=== PATIENT | male | born 2000 | race Caucasian/White ===

== ENCOUNTER 2022-05-10 07:30 | Outpatient (RCR) | payer BC, MEDICAID, SELFPAY | END 2022-08-05 14:59 | disposition home or self-care (01) | PROVIDERS: PCP Pediatrics; Visit Provider Orthopaedic Surgery | DX: M25.511 Pain in right shoulder (principal); M75.41 Impingement syndrome of right shoulder; Z74.9 Problem related to care provider dependency, unspecified; Z51.89 Encounter for other specified aftercare | CPT/HCPCS: 97110; 97140; 97161 ==

== ENCOUNTER 2022-11-22 09:22 | Outpatient (CLI) | payer BC, MEDICAID, SELFPAY ==
--- NOTE | 2022-11-22 09:15 | CRLHL7_ITS ---
For Patients: As a result of the Century Cures Act, medical imaging exams and procedure reports are released immediately into your electronic medical record. You may view this report before your referring provider. If you have questions, please contact your health care provider. Indication: CHRONIC RIGHT SHOULDER PAIN Procedure : Informed consent was obtained. The site was marked. Time-out was performed. The skin of the right shoulder was cleansed with ChloraPrep. A sterile drape was placed. 8 cc of 1 percent lidocaine was administered for superficial anesthesia. Subsequently a 22 gauge spinal needle was introduced into the right shoulder joint under intermittent fluoroscopic guidance. Injection of 2 cc nonionic Omnipaque 240 contrast confirmed intra-articular location. Subsequently 11 cc of dilute gadolinium were injected. The needle was removed and hemostasis achieved with direct pressure. A dressing was placed. The patient tolerated the procedure well without immediate complication and was immediately sent to MRI for imaging. Total fluoroscopy time 19 seconds. Impression: Successful fluoroscopically guided right shoulder arthrogram for MRI. Dictated by Jackson Meyers MD @ 11/22/2022 10:52:18 AM (Electronically Signed)
--- NOTE | 2022-11-22 10:15 | MR_ITS ---
[address] [address] Phone:?[phone] Fax:?[phone] Referring Physician Information: Adria Guzman M.D. [address] [facility] [address] Phone:?[phone] Fax:?[phone] Patient:?Valentin Valerio D.O.B:?2000 Sex:?Male Phone:?[phone] [facility] MRN:?[id number] Exam Date:?11/22/2022 ? EXAM: MR ARTHROGRAM of the RIGHT SHOULDER CLINICAL: Male, 22 years old, with chronic right shoulder pain. INDICATION: Evaluate for shoulder derangement etiology. PRIOR SURGERY: None reported. PLAIN FILMS: None available. COMPARISON: No prior MRIs available. TECHNICAL: Exam performed after fluoroscopically-guided and gadolinium contrast arthrography of the right glenohumeral joint, reported separately. Using a 1.5T MR scanner and a localizing shoulder surface coil: 3.0 mm?coronal obliques: PD, PDFS, T1FS 3.0 mm?sagittal obliques: T2, PDFS 3.0 mm?axials: PD, PDFS SEDATION: None. CONTRAST: No intravenous contrast. IMPRESSION: 1. Mild tendinosis of the distal anterior supraspinatus tendon and distal superior subscapularis tendon without more marked tendinopathy or defined tear. 2. No biceps tendon pathology. 3. No labral tears. 4. No glenohumeral chondromalacia/osteoarthritis. FINDINGS: Glenohumeral joint: Contrast/cyst: Contrast distends joint capsule. No paralabral ganglion cyst. Articular cartilage: Humeral head: No osteochondral abnormalities. Glenoid: No osteochondral abnormalities. Loose bodies: No demonstrable loose bodies. Capsule: No convincing adhesive capsulitis or capsular injury. Labrum: No labral tears. Bones: Proximal humerus: No fracture or marrow edema/pathology. No humeral Hill-Sachs or reverse Hill-Sachs lesion/impaction or contusion. Glenoid: No fracture or marrow edema/pathology. No osseous Bankart lesion. Coracoacromial arch: Acromion morphology: Type I acromion without defined subacromial spur/enthesophyte. No mesoacromion or preacromion. Acromiohumeral space: Within normal limits. Coracohumeral space: Within normal limits. Acromioclavicular joint: Joint: No acute injury, arthropathy, or inferior hypertrophy. Ligaments: Coracoclavicular ligaments are intact. Bursae: Subacromial-subdeltoid: No contrast in the subacromial space. No convincing subacromial bursal thickening/bursitis. Subcoracoid: No convincing subcoracoid bursal thickening/bursitis. Rotator cuff and muscles/tendons: Supraspinatus: Very localized mild supraspinatus tendinosis of the distal anterior supraspinatus tendon without more marked tendinopathy or defined tear (coronal images 10-9; sagittal images 6-4). Infraspinatus: No tendinopathy, tear or atrophy. Teres minor: No tendinopathy, tear or atrophy. Subscapularis: Mild subscapularis tendinosis without more marked tendinopathy, tear or muscle atrophy Deltoid: No strain or atrophy. Biceps tendon, long head: Intraarticular and extraarticular segments are intact without rupture, tendinopathy or displacement. [facility] Electronically signed on 11/23/2022 11:26:00 AM by Jose Cheema M.D.
== END 2022-11-22 09:23 | disposition home or self-care (01) ==
PROVIDERS: PCP Pediatrics; Visit Provider Family Medicine
DX: M25.511 Pain in right shoulder (principal); M75.101 Unspecified rotator cuff tear or rupture of right shoulder, not specified as traumatic
CPT/HCPCS: 23350; 73222; 77002; A9575; Q9966

== ENCOUNTER 2023-01-24 14:22 | Outpatient (CLI) | payer BC, MEDICAID, SELFPAY ==
--- NOTE | 2023-01-24 14:30 | CRLHL7_ITS ---
For Patients: As a result of the 21st Century Cures Act, medical imaging exams and procedure reports are released immediately into your electronic medical record. You may view this report before your referring provider. If you have questions, please contact your health care provider. INDICATION: Ankle pain after injury. COMPARISON: None. TECHNIQUE: Axial and coronal PD and PD fat sat and sagittal T1 and STIR left ankle. FINDINGS: Tendons: Normal caliber and signal of the periarticular tendons. Upper normal physiologic fluid posterior tibialis tendon sheath. Type 2 accessory navicular ossicle is edematous as is the interface with the medial pole of the navicular. - Ligaments: High-grade tear to near complete of the anterior inferior tibiofibular ligament. No syndesmotic widening. Low-grade sprain of the slightly edematous and striated posterior syndesmotic ligament with some marrow edema in the posterior process of the talus. Moderately attenuated anterior talofibular ligament mostly at the distal insertion. Patulous anterolateral capsule. Deltoid is normal. No sinus tarsus syndrome. - Ankle joint: Moderate sized effusion with subtle patchy and strandy intermediate signal filling defects which may be hemorrhage or synovitis. Cartilage thickness and signal is maintained. Subtalar joint is normal. - Bones and soft tissues: Plantar fascia thickness and signal is normal. No fracture or bone lesion. No degenerative or inflammatory change. Minor presumed posttraumatic contusion marrow edema the medial malleolus. Thickening and likely partial tearing of the capsule origin overlying this. Some edematous thickening along the periosteal margin to the metaphysis. Associated edematous indistinctness of the medial margin of the anterior extensor retinaculum. IMPRESSION: 1. High-grade to full-thickness anterior syndesmotic tear and partial tear of the posterior syndesmotic ligament without widening of the syndesmosis or abnormal fluid in the recess. 2. Intermediate to high-grade age indeterminate sprain of the inserting anterior talofibular ligament patulous partially torn anterolateral ankle joint capsule. 3. Partial capsular tear and periosteal edema along the medial malleolus. 4. Posttraumatic effusion with presumed minor hemorrhage or synovitis in the tibiotalar ankle joint. 5. Accessory navicular syndrome. Dictated by Adria Cormier MD @ 01/27/2023 8:36:41 AM (Electronically Signed)
== END 2023-01-24 14:23 | disposition home or self-care (01) ==
LOC: MRI 14:23
PROVIDERS: PCP Pediatrics; Visit Provider Family Medicine
DX: M25.572 Pain in left ankle and joints of left foot (principal); S93.492A Sprain of other ligament of left ankle, initial encounter; M25.472 Effusion, left ankle
CPT/HCPCS: 73721

== ENCOUNTER 2023-09-12 11:47 | Day surgery (SDC) | payer BC, MEDICAID, SELFPAY ==
[2023-09-12] VITALS (12 sets, daily range): BP systolic 116–144; BP diastolic 61–83; PULSE 58–95; RESP 15–17; TEMP 36.3–36.6; O2SAT 95–98; BMI 29.6
[2023-09-12] MEDS: LACTATED RINGERS 1000 ML 1,000 ML 100 ML IV (10:25)
[2023-09-12] MEDS: SODIUM CHLORIDE 0.9 % (FLUSH) 10 ML SYRINGE IVF (12:06)
--- NOTE | 2023-09-12 13:17 | W.ANESCHARGE ---
Anesthesia Charges Start Date/Time Anesthesia Start Date: 09/12/23 Anesthesia Start Time: 13:58 Stop Date/Time Anesthesia Stop Date: 09/12/23 Anesthesia Stop Time: 14:29
[2023-09-12] MEDS: OXYMETAZOLINE 0.05% NASAL SPRAY 2 SPRAY NOSTRIL-B (13:29)
[2023-09-12] MEDS: MUPIROCIN 1 GM PACKET 1 APPLIC TOPICAL (14:10)
--- NOTE | 2023-09-12 14:16 | W.PM.ENTPROC ---
Procedure Note Date of procedure: 09/12/23 Procedure: Preop diagnosis is nasal fracture with displacement medially on the left laterally on the right Postoperative diagnosis same Procedure closed reduction nasal fracture with internal external fixation. Under general trach anesthesia patient was prepped and draped usual fashion and the nose decongested. The laterally displaced right nasal bone was reduced digitally with some pressure. A good reduction was achieved. Above that the nasal bone was fractured inward slightly and this was elevated with the fracture elevator. The left nasal bone was displaced significantly medially and elevated with the fracture elevator. A Merocel pack soaked in Bactroban was placed beneath the fracture line on this side and external dressing consisting of benzoin and Steri tape was applied. The patient procedure well was taken recovery in satisfactory condition. Blood loss during procedure less than 25 mL. Surgeon: Saman Clay MD
--- NOTE | 2023-09-12 14:29 | W.ANESCHARGE ---
Anesthesia Charges Start Date/Time Anesthesia Start Date: 09/12/23 Anesthesia Start Time: 13:58 Stop Date/Time Anesthesia Stop Date: 09/12/23 Anesthesia Stop Time: 14:29
--- NOTE | 2023-09-12 15:02 | SUR.PHASEI ---
patient met discharge criteria per anesthesia
[2023-09-12] MEDS: IBUPROFEN 200 MG TABLET PO (15:09)
[2023-09-12] MEDS: ACETAMINOPHEN 325 MG TABLET PO (15:09)
[2023-09-12] MEDS: OXYCODONE 5 MG TABLET PO (15:36)
== END 2023-09-12 15:56 | disposition home or self-care (01) ==
LOC: OR 11:47
PROVIDERS: Visit Provider Otolaryngology
PROC: 0NSBXZZ Reposition Nasal Bone, External Approach (ICD-10-PCS; CPT 21320; principal; 2023-09-12 13:00)
DX: S02.2XXA Fracture of nasal bones, initial encounter for closed fracture (principal)
CPT/HCPCS: 21320; 160; A9270; J0330; J1100; J2405; J2704; J3010; J7120

== ENCOUNTER 2024-06-16 00:44 | Emergency (ER) | payer BC, MEDICAID, SELFPAY ==
[2024-06-16 00:51] VITALS: BP 160/75; PULSE 99; RESP 20; TEMP 36.8; O2SAT 99; BMI 27.4
[2024-06-16] MEDS: hydrOXYzine pamoate 25 MG CAPSULE 50 MG PO (01:26)
[2024-06-16] MEDS: MELATONIN 3 MG TABLET 6 MG PO (01:27)
[2024-06-16] MEDS: FLUOXETINE HCL 20 MG CAPSULE PO (01:27)
--- NOTE | 2024-06-16 01:30 | ED.ANXIETY ---
HPI - Anxiety General Chief Complaint: Anxiety Stated Complaint: Mental Health Time Seen by Provider: 06/16/24 00:45 Source: patient and family Mode of arrival: ambulatory History of Present Illness HPI narrative: 22-year-old male presents the emergency department for evaluation of anxiety. Patient reports several weeks of increased anxiety stemming from relationship problems with his significant other and ultimate flea lead to a break-up about a week ago. He admits to poor sleep and lots of anxiety and panic since the break-up. He reports that on Friday he went to work for a few hours but had to leave early because the anxiety was bothersome. States that he has been fixating on relationships, sounds like a mix of both perseveration and rumination. Reports that he has been prone to that in the past. He initially tells me that he has no prior history of depression or anxiety but on more specific, direct question, he does explain that he was hospitalized 5 years ago for adjustment disorder in the setting of depression and anxiety for 1 week. It sounds as though he was started on medication at discharge, but did not continue and did not follow up further. His mother tells me that this was at [facility]. I do not have access to those records. He is not doing any counseling and has not since hospital discharge. He does have a lot of mental health issues stemming from his father's traumatic 5-6 years ago. He denies suicidal thoughts, homicidal thoughts, paranoia, psychosis or delusions. His mother confirms this. 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 He admits that he had for 5 drinks today, no alcohol yesterday. Reports that he typically drinks socially but it does sound as though there is some binge drinking in his history. No pancreatitis in the last 6 months. He has not been using any prescription or nonprescription pharmaceuticals to help with his symptoms. Has not tried any prwt-hvo-[id number] sleep aids. Denies stimulant use. He does have an appointment in 3 days with a new primary care provider to discuss the depression and anxiety. His past medical history is notable for the prior pancreatitis, 1 short depression hospitalization as a teen, otherwise benign per his report. No major long-term medications. No known drug allergies. No recent surgeries. Mother tells me that his father also had a history of depression and anxiety and after I make a suggestion of starting fluoxetine, his mother tells me that his father did very well on that medication. ROS is notable for the depression and anxiety but otherwise denies times 12 systems. He is somewhat guarded though in his interview and his mother does attempt to answer some of his questions for him. Related Data Previous Rx's ?Medication ?Instructions ?Recorded fluoxetine 20 mg capsule 20 mg PO QPM #20 caps 06/16/24 Allergies Allergy/AdvReac Type Severity Reaction Status Date / Time No Known Drug Allergies Allergy Verified 06/16/24 00:53 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) Sialoadenitis ?K11.20 - Sialoadenitis, unspecified (ICD-10) Nocturnal enuresis (08/09/13) ?N39.44 - Nocturnal enuresis (ICD-10) Insomnia (08/13/12) ?G47.00 - Insomnia, unspecified (ICD-10) Ganglion cyst (03/26/13) ?M67.40 - Ganglion, unspecified site (ICD-10) Contusion of left lower extremity ?S80.12XA - Contusion of left lower leg, initial encounter (ICD-10) Concussion ?S06.0X9A - Concussion with loss of consciousness of unspecified duration, initial encounter (ICD-10) Surgical History History of orthopedic surgery ?Z98.890 - Other specified postprocedural states (ICD-10) History of tonsillectomy (08/13/12) ?Z90.89 - Acquired absence of other organs (ICD-10) H/O nasal septoplasty (08/09/13) ?Z98.890 - Other specified postprocedural states (ICD-10) Family History Mother Breast cancer Social History Narrative: Single. No children. Formally exercise. Alcohol, weekends. No illicit drug use. Non-smoker. Smoking Status: Never smoker Second hand tobacco smoke exposure: No How often do you have a drink containing alcohol: 2-4 times a month How many standard drinks containing alcohol do you have on a typical day: 3 or 4 AUDIT-C Alcohol total score: 3 Non-prescribed substance use: denies use Caffeine: Yes Exam Const: Vital Signs, click to edit/add: Vital Signs - 24 hr 06/16/24 00:51 06/16/24 01:36 Temperature 98.3 F 98.3 F Pulse Rate [Right Femoral] 99 91 Respiratory Rate 20 20 Blood Pressure [Ri ght Upper Arm] 160/75 H 132/74 Pulse Oximetry 99 99 Oxygen Delivery Me thod Room Air Room Air Documenting provider has reviewed patient's vital signs: yes Common normals: no apparent distress and alert General appearance: comfortable and well kempt Other: Tearful but cooperative. Well groomed. Well nourished and well hydrated. Appears developmentally normal. No obvious intoxication. HENMT: Common normals: normocephalic Head and scalp: normocephalic Face and sinus: normal facial exam Mouth: oral and palatal mucosa normal Throat: posterior oropharynx normal Eye: Common normals: conjunctivae normal General eye: normal appearance of both eyes Conjunctiva: conjunctiva(e) normal Neck & C-Spine: Common normals: full ROM and no lymphadenopathy Resp: Common normals: normal respiratory effort, no use of accessory muscles and clear to auscultation bilaterally Effort & inspection: able to speak in complete sentences Auscultation: clear to auscultation bilaterally Cardio: Common normals: regular rate, regular rhythm, S1 normal heart sound, S2 normal heart sound and no murmurs Rate: regular rate Rhythm: regular rhythm Heart sounds: S1 normal and S2 normal GI: Common normals: Normal to inspection, nondistended, normoactive bowel sounds present, soft to palpation, non-tender, no hepatosplenomegaly and no masses Palpation: soft and no hepatosplenomegaly Extremity: Common normals: normal to inspection, full ROM and normal capillary refill Neuro: Sensorium/orientation: alert Speech: speech normal Gait (neuro): normal gait Motor exam: no tremor noted and no movement abnormalities noted Psych: Common normals: thought process normal and speech normal Appearance: well kempt Activity/motor behavior: avoids eye contact Speech: normal speech Mood and affect: depressed mood and flat affect Thought process: normal thought process Thought content: normal thought content Insight: insight good Judgement: judgment good Skin: Common normals: no rashes or lesions noted Narrative: No signs of self injury or trauma General skin exam: no rashes or lesions noted Course Course ED Course: 23-year-old male with history of prior depression anxiety in the setting of major grief presenting with recent relationship break-up and trigger for worsening depression and anxiety again. No active suicidal or homicidal thoughts, does not seem as though he is an immediate threat to himself. I do not think you would benefit from hospitalization at this time. At risk alcohol behaviors with no obvious signs of acute medical compromise. Counseled patient and family on symptoms. I do think he is going to benefit from a larger scale, multi disciplinary approach for his mental health needs. Rationale was discussed. Patient will keep this follow-up appointment for Friday which is 2 and half days from now. He will start fluoxetine 20 mg at bedtime, side effects in usage discussed. Okay to transition to daytime use of it seems to cause insomnia. Will receive 1st dose here in the ED. Begin Vistaril 25 mg 1-2 tablets every 4-6 hours as needed, max of 4 per day. Two tablets will be given here in the ED now. Counseled on gentle ofqo-nlk-wydjcuz sleep aids like melatonin and Unisom. Will give 6 mg of melatonin prior to ED discharge as well. Mother is driving him home. Counseled that other sleep agents like trazodone or potentially even Flexeril may need to be added but starting all of these it once through in ED is not a good idea. These are great things to discuss further with his primary care provider at their follow-up visit. Patient will call for a counseling appointment in the morning. Alarm symptoms reviewed that would warrant ED presentation. He and his mother verbalized understanding and agreement. He will stay away from alcohol. He will exercise 30 minutes per day and spent at least 30 minutes per day outside. Brief discussion of nutrition. All questions answered, written instructions provided. 28 minutes spent face to face. Vital Signs Vital signs: Initial Vital Signs Temperature 98.3 F 06/16/24 00:51 Temperature Source Temporal Artery Scan 06/16/24 00:51 Pulse Rate 99 06/16/24 00:51 Respiratory Rate 20 06/16/24 00:51 Respiratory Effort Normal, Spontaneous, Non-Labored 06/16/24 00:51 Respiratory Depth Normal 06/16/24 00:51 Respiratory Pattern Normal 06/16/24 00:51 Blood Pressure 160/75 H 06/16/24 00:51 Blood Pressure Mean 103 06/16/24 00:51 Blood Pressure Position Sitting 06/16/24 00:51 Pulse Oximetry 99 06/16/24 00:51 Oxygen Delivery Method Room Air 06/16/24 00:51 Vital Signs Temperature 98.3 F 06/16/24 00:51 Pulse Rate 99 06/16/24 00:51 Respiratory Rate 20 06/16/24 00:51 Blood Pressure 160/75 H 06/16/24 00:51 Pulse Oximetry 99 06/16/24 00:51 Oxygen Delivery Method Room Air 06/16/24 00:51 Temperature 98.3 F 06/16/24 01:36 Pulse Rate 91 06/16/24 01:36 Respiratory Rate 20 06/16/24 01:36 Blood Pressure 132/74 06/16/24 01:36 Pulse Oximetry 99 06/16/24 01:36 Oxygen Delivery Method Room Air 06/16/24 01:36 Medications Administered Medications: Generic Name Dose Route Start Last Admin Trade Name Freq PRN Reason Stop Dose Admin Fluoxetine HCl 20 mg 06/16/24 01:21 06/16/24 01:27 Fluoxetine Hcl 20 Mg Capsule PO 06/16/24 01:22 20 mg ONCE ONE Administration Hydroxyzine Pamoate 50 mg 06/16/24 01:21 06/16/24 01:26 Hydroxyzine Pamoate 25 Mg Capsule PO 06/16/24 01:22 50 mg ONCE ONE Administration Melatonin 6 mg 06/16/24 01:22 06/16/24 01:27 Melatonin 3 Mg Tablet PO 06/16/24 01:23 6 mg HS ONE Administration Discharge Plan Discharge Clinical Impression: Adjustment disorder with mixed anxiety and depressed mood Patient Disposition: Home w/ Parent or Adult Condition: Stable Instructions: Anxiety (ED) Additional Instructions: Discussed, I do not think it would be field to assume that your symptoms are going to improve significantly without a multidisciplinary approach and a commitment to several months of treatment. I do not think that you would benefit from hospitalization at this time but this should be considered if things do not start improving. Keep your follow-up appointment for Friday. Please bring this paperwork with you to the appointment to help that provider better navigate your next steps in treatment. It is important that you call for a counseling appointment tomorrow. It may take a few days or even a few weeks to secure an appointment. There in person options available in [facility] and there are online options available as well. Sometimes checking with your insurance provider can be helpful as well. I would recommend that we start you on a medication that is intended for every day use. This is fluoxetine. Take 1 tablet at bedtime. If you notice it is worsening your insomnia, it is okay to switch it to morning instead. These medications take a few weeks to fully kick in. Most start to notice some improvement in 3-5 days. I am starting you on a low dose, 20 mg once daily. Typical dose is 40-60 mg. Your primary care provider will need to be in close contact with you to adjust after 1-2 weeks as needed. I am also recommending that we give you an on demand treatment medication that you can take when the anxiety becomes more bothersome, Vistaril. You may take up to 4 tablets daily. Take 1-2 tablets up to every 6 hours as needed for worsening anxiety. Remember that this will not take all of the anxiety away but should lessen things slightly. It is important that you are not drinking any alcohol. That is only going to worsen your anxiety and wrist damage to other organs. I recommend melatonin 10 mg at bedtime to help with sleep. You may also use 1-2 tablets of wcon-mgb-qkwrskz Unisom. If your sleep is not improving after a few days on the fluoxetine, your primary care provider can consider adding additional sleep agents like trazodone. It is not a good idea to start more than 2 new medications at a time, especially in an emergency room setting when I cannot follow-up with you for adjustments as needed. If you start having hallucinations, increased suicidal thoughts or overall general worsening, you should come to an emergency department. Please bring [facility] paperwork to your primary care visit on Friday for your recent missed work since that has been more than 3 days. You can typically obtain this from your HR website. It is important that you are exercising at least 30 minutes per day and caring for your self nutritionally. It is important you spend at least 30 minutes outside per day and that you make a point to leave the house at least once daily for 1 hour. Keep in close contact with family and let them know also if your having side effects or other escalating problems. Activity Level: No Restrictions Discharge Diet: Regular Prescriptions: New fluoxetine 20 mg capsule 20 mg PO QPM Qty: 20 0RF Follow Up/Referrals: Provider,Not a Local [Primary Care Provider] - Stand Alone Forms: [employer] [facility] Info Instructions
[2024-06-16 01:36] VITALS: BP 132/74; PULSE 91; RESP 20; TEMP 36.8; O2SAT 99
--- OUTSIDE RECORDS SUMMARY | 2024-06-16 01:38 | XMS_ITS | Clinical Summary ---
Author Organization [facility] Address [place], [place] [address] Care Team Providers Care Desk Reporter Name Role Phone Dorota Umaña Primary Care Provider Allergies No known active allergies Medications Medication Sig Dispensed Refills Start Date End Date Status durable medical equipment (DME)Indications:Acq uired subluxation of left shoulder, initial encounter Kamari Guerrier, Small DJO [id number] Length of Use: 99 months 0 07/03/2020 Active durable medical equipment (DME)Indications:Spr ain of medial collateral ligament of right knee, initial encounter,Recurrent instability of right knee joint Kamari Garza Action CI, Right, Medium DJO [id number] Length of Use: 99 months 0 12/02/2020 Active durable medical equipment (DME)Indications:Hig h ankle sprain, left, initial encounter Airselect, Standard, Medium 01EF-M Length of use: 99 months 0 12/09/2022 Active durable medical equipment (DME)Indications:Spr ain of anterior talofibular ligament of left ankle, sequela,High ankle sprain, left, subsequent encounter Kamari Velocity ES, STD, Left, M, BLK [phone] Length of Use: 99 months 0 02/07/2023 Active tiZANidine (ZANAFLEX) 4 mg tabletIndications:Ac ena back pain, unspecified back location, unspecified back pain laterality Take 1 Tablet (4 mg) by mouth every 8 hours if needed for Muscle Spasm. 30 Tablet 11/27/2023 Active lidocaine 5 % topical patchIndications:Acu te back pain, unspecified back location, unspecified back pain laterality Apply to intact skin to cover most painful area for max 12hr per 24hr period. 30 Patch 11/27/2023 Active Active Problems Problem Noted Date Diagnosed Date Alcohol-induced acute pancreatitis 04/14/2023 Recurrent instability of right knee joint 2022 Depression 03/08/2019 [place]-Schlatter's disease of left knee 06/28/20 15 Anxiety 12/28/2010 Hypertrophy of tonsils alone 08/28/2007 Epistaxis 08/28/2007 Allergic rhinitis, cause unspecified 08/28/2007 Acute suppurative otitis med ia without spontaneous rupture of eardrum 03/05/2007 Overview (03/05/2007): recurrent hx Immunizations Name Administration Dates Next Due AMB Influenza, IIV3 (Age >=3 years)(Flu Clinic Only) 07/21/2009 DTaP 12/18/2007, 4,05/06/2003,02/25,2002 HIB-HepB (Comvax) 01/31/2004,02/25/2003,12/23/19 03 HPV 9 (Gardasil 9) 05/29/2020,08/05/2017 Hepatitis A (Peds) 08/05/2017,04/06/2015 Inactivated Polio Vaccine 12/18/2007,10/2002,02/25/2003,12/22 Influenza, IIV3 (Age >=3 years) 08/06/2004 Influenza, IIV4 08/05/2017 MENINGOCOCCAL VACCINE 2 VIAL [id number] (MENVEO) 04/06/2015 MMR 12/18/2007,11/02/2003 Meningococcal B 05/29/2020 Meningococcal Vaccine (Menactra) 05/29/2020 Pneumococcal conj 7-Valent (Prevnar 7) 0 11/02/2003,05/06/2003,02/25/2003,12/22 Tdap 04/06/2015 Varicella Vaccine 12/18/2007,11/02/2003 Family History Medical History Relation Name Comments Good Health Father Good Health Mother Relation Name Status Comments Father Mother Social History Tobacco Use Types Packs/Day Years Used Date Smoking Tobacco: Never Smokeless Tobacco: Never Tobacco Cessation:Counseling Given: Yes Comments:no exposure Alcohol Use Standard Drinks/Week Comments Yes 0 (1 standard drink = 0.6 oz pur e alcohol) ETOH yesterday PHQ-2 Answer Date Recorded PHQ-2 TOTAL SCORE 0 12/03/2023 Social Connections Answer Date Recorded Frequency of Communication with Friends and Fami ly 0 11/23/2023 Financial Resource Strain Answer Date R ecorded Difficulty of Paying Living Expenses 3 11/23/2023 Difficulty of Paying Living Expenses Not on file 11/23/2023 Food Insecurity Answer Date Recorded Worried About Running Out of Food in the Last Ye ar 1 11/23/2023 Transportation Needs Answer Date Record ed Lack of Transportation (Medical) 1 11/23/2023 Housing Stability Answer Date Recorded Unable to Pay for Housing in the Last Year 1 11/23/2023 Sex and Gender Information Value Date Recorded Sex Assigned at Not on file Gender Identity Not on file Sexual Orientation Not on file Obstetrics History Last Filed Vital Signs Vital Sign Reading Time Taken Comments Blood Pressure 109/74 12/03/2023 2:23 PM PAYMENT PROCESSOR Pulse 72 12/03/2023 2:23 PM PAYMENT PROCESSOR Temperature 36.7 ??C (98 ??F) 12/03/2023 2:23 PM PAYMENT PROCESSOR Respiratory Rate 16 11/27/2023 7:55 AM PAYMENT PROCESSOR Oxygen Saturation 97% 12/03/2023 2:23 PM PAYMENT PROCESSOR Inhaled Oxygen Concentration - - Weight 84.7 kg (186 lb 12.8 oz) 12/03/2023 2:23 PM PAYMENT PROCESSOR Height 172.7 cm (5' 8) 12/03/2023 2:23 PM PAYMENT PROCESSOR Body Mass Index 28.4 12/03/2023 2:23 PM PAYMENT PROCESSOR Plan of Treatment Upcoming Encounters Date Type Department Care Team (Late st Contact Info) Description 06/18/2024 1:40 PM CDT Office Visit [facility] [address] [place] [address] Dorota Umaña PA [address] [place] [address] Health Maintenance Due Date Last Done Comments Pneumococcal series for age 6-64 (1 of 2 - PCV) 2008 11/02/2003, 05/06/2003, 02/25/2003, Additional history exists HIV for age 15-65 2017 Hepatitis C screening for ag e 18-79 2020 COVID-19 vaccine series ( season) 2024 Influenza for age 9-49 06/06/2024 7, 07/21/2009, 08/06/2004 BMI (ht and wt on same day) for age 18+ 12/03/2024 12/03/2023, 02/12/2022, 07/19/2021 Depression screening for age 12+ 12/03/2024 12/03/19 Tetanus booster 04/06/2025 04/06/2015 Tdap Completed 04/06/2015 HPV series for age 9-26 Completed 05/29/2020, 08/05 Meningococcal series for age 11-21 Completed 2019, 04/06/2015 Advance Directives * Full Code (Latest Code Status on File) Date Activated Date Inactivated Comments 11/23/2023 11:31 AM 11/27/2023 12:55 PM Question Answer Comments Code Status Discussion: Reviewed Preferences * Full Code Date Activated Date Inactivated Comments 04/14/2023 10:30 AM 04/17/2023 1:05 PM Question Answer Comments Code Status Discussion: Reviewed Preferences Care Teams Desk Reporter Relationship Specialty Start Date End Date Dorota Umaña PA [address] [place] [address] PCP - General Physician Music Therapist 04/26/24
[2024-06-16 01:39] VITALS: BP 132/74; PULSE 91; RESP 20; TEMP 36.8
== END 2024-06-16 01:40 | disposition home or self-care (01) ==
LOC: ED 01:36
PROVIDERS: Emergency Provider Family Medicine
DX: F43.23 Adjustment disorder with mixed anxiety and depressed mood (principal)
CPT/HCPCS: 99284; A9270

== ENCOUNTER 2024-07-03 11:27 | Emergency (ER) | payer BC, MEDICAID, SELFPAY ==
[2024-07-03] VITALS (7 sets, daily range): BP systolic 146; BP diastolic 109; PULSE 72–87; RESP 16; TEMP 36.3; O2SAT 92–97; BMI 28.1
--- NOTE | 2024-07-03 12:06 | CRLHL7_ITS ---
For Patients: As a result of the Century Cures Act, medical imaging exams and procedure reports are released immediately into your electronic medical record. You may view this report before your referring provider. If you have questions, please contact your health care provider. INDICATION: Abdominal pain, bilateral flank pain. TECHNIQUE: CT abdomen and pelvis acquired with 91 mL Isovue 370 IV contrast. COMPARISON: None. FINDINGS: Lower chest: Unremarkable. Liver: Unremarkable. Normal in size and attenuation. No masses. Gallbladder and bile ducts: Unremarkable. No stones or inflammation. No biliary dilatation. Pancreas: Inflammatory stranding and small amount of fluid around the pancreas, mainly around the head, compatible with acute pancreatitis. Normal pancreatic enhancement. No defined fluid collections. Spleen: Mildly enlarged at 14 cm. Adrenal glands: Unremarkable. No nodules. Kidneys: Tiny left renal cysts. GI tract: Unremarkable. Normal in caliber. No sign of mass or inflammation. Normal appendix. Vasculature: Unremarkable. Mesenteric arteries are patent. Lymph nodes: No lymphadenopathy. Omentum/Peritoneum/Abdominal Wall: Unremarkable. No sign of mass or infiltration. No free air or significant free fluid. Pelvis: Trace free fluid. Bones: Unremarkable for age. IMPRESSION: Acute pancreatitis. Please note that all CT scans at this facility use dose modulation, iterative reconstruction, and/or weight-based dosing when appropriate to reduce radiation dose to as low as reasonably achievable. Dictated by Waqar Duff MD @ 07/03/2024 1:46:12 PM (Electronically Signed)
[2024-07-03 12:26] LABS: Basophils Percent Auto 0.2 % (0.0-3.0); Eosinophils Percent Auto 0.6 % (0.0-7.0); Hematocrit 44.9 % (37.0-53.0); Hemoglobin* 16.2 gm/dL (13.5-17.5); Immature Granulocytes Pct Auto 0.3 %; Mean Corpuscular HGB Conc 36 gm/dL (32-36); Mean Corpuscular Hemoglobin 32 pg (26-34); Mean Corpuscular Volume 87 fL (80-100); Monocytes Percent Auto 9.2 % (0.0-11.0); Neutrophils Percent Auto 79.7 % (42.0-72.0); Platelet Count* 160 K/uL (140-440); RDW Coefficient of Variation % 11.9 % (11.5-15.5); Red Blood Count 5.15 m/uL (4.30-5.90); White Blood Count* 11.81 K/uL (4.50-11.00)
[2024-07-03] MEDS: HYDROmorphone 0.5 mg/0.5 ml inj IVP ×2 (12:29→14:28)
[2024-07-03] MEDS: ONDANSETRON 2 MG/ML inj 4 MG IVP (12:29)
[2024-07-03 12:39] LABS: Albumin* 4.8 g/dL (3.3-5.0)
[2024-07-03 12:40] LABS: Chloride* 101 mmol/L (96-114); Potassium* 3.9 mmol/L (3.6-5.1); Slide Review Reflex No; Sodium* 135 mmol/L (135-149)
[2024-07-03 12:42] LABS: Anion Gap 10 mEq/L (7-15); Aspartate Amino Transferase* 31 U/L (12-35); Bilirubin Direct* 0.3 mg/dL (0.0-0.5); Bilirubin Total* 1.3 mg/dL (0.1-1.5); Carbon Dioxide* 24 mmol/L (20-32); Creatinine* 0.7 mg/dL (0.5-1.5); Estimated Glomerular Filt Rate 134 ml/min; Total Protein* 7.4 g/dL (6.0-8.3)
[2024-07-03 12:43] LABS: Alanine Aminotransferase* 85 U/L (4-50); Alkaline Phosphatase* 53 U/L (40-150); Blood Urea Nitrogen* 12 mg/dL (5-24); Calcium* 9.5 mg/dL (8.4-10.6); Glucose* 112 mg/dL (60-115); Lipase* 1016 U/L (23-300)
--- OUTSIDE RECORDS SUMMARY | 2024-07-03 13:06 | XMS_ITS | Clinical Summary ---
Author Organization [facility] Address [place], [place] [address] Care Team Providers Care Escalation Engineer Name Role Phone Doroat Umaña Primary Care Provider Allergies No known active allergies Medications Medication Sig Dispensed Refills Start Date End Date Status FLUoxetine (PROZAC) 20 mg capsuleIndication s:Anxiety Take 1 Capsule (20 mg) by mouth once daily in the morning. 30 Capsule 1 06/18/2024 Active hydrOXYzine pamoate (VISTARIL) 25 mg capsuleIndication s:Anxiety Take 1 Capsule (25 mg) by mouth 3 times daily if needed for Anxiety. 30 Capsule 1 06/18/2024 Active durable medical equipment (DME)Indications: Acquired subluxation of left shoulder, initial encounter Avel Guan DJO [id number] Length of Use: 99 months 0 07/03/2020 06/18/2024 Discontinue d(*Patient states no longer taking) durable medical equipment (DME)Indications: Sprain of medial collateral ligament of right knee, initial encounter,Recurre nt instability of right knee joint Matt Stanley CI, Right, Medium DJO [id number] Length of Use: 99 months 0 12/02/2020 06/18/2024 Discontinue d(*Patient states no longer taking) durable medical equipment (DME)Indications: High ankle sprain, left, initial encounter Airselect, Standard, Medium 01EF-M Length of use: 99 months 0 12/09/2022 06/18/2024 Discontinue d(*Patient states no longer taking) durable medical equipment (DME)Indications: Sprain of anterior talofibular ligament of left ankle, sequela,High ankle sprain, left, subsequent encounter Matt Potter ES, STD, Left, M, BLK [phone] Length of Use: 99 months 0 02/07/2023 06/18/2024 Discontinue d(*Patient states no longer taking) tiZANidine (ZANAFLEX) 4 mg tabletIndications :Acute back pain, unspecified back location, unspecified back pain laterality Take 1 Tablet (4 mg) by mouth every 8 hours if needed for Muscle Spasm. 30 Tablet 11/27/2023 06/18/2024 Discontinue d(*Patient states no longer taking) lidocaine 5 % topical patchIndications: Acute back pain, unspecified back location, unspecified back pain laterality Apply to intact skin to cover most painful area for max 12hr per 24hr period. 30 Patch 11/27/2023 06/18/2024 Discontinue d(*Patient states no longer taking) FLUoxetine (PROZAC) 20 mg capsule TAKE ONE CAPSULE(20MG) BY MOUTH EVERY EVENING 06/16/2024 06/18/2024 Discontinue d(Reorder (E-cancel not sent)) hydrOXYzine pamoate (VISTARIL) 25 mg capsule 06/16/2024 06/18/2024 Discontinue d(Reorder (E-cancel not sent)) Active Problems Problem Noted Date Diagnosed Date Alcohol-induced acute pancreatitis 04/14/2023 Recurrent instability of right knee joint 2022 Depression 03/08/2019 [place]-Schlatter's disease of left knee 06/28/20 15 Anxiety 12/28/2010 Hypertrophy of tonsils alone 08/28/2007 Epistaxis 08/28/2007 Allergic rhinitis, cause unspecified 08/28/2007 Acute suppurative otitis med ia without spontaneous rupture of eardrum 03/05/2007 Overview (03/05/2007): recurrent hx Encounters Date Type Department Care Team Description 06/28/2024 Telephone [facility] [address] [place] [address] Dorota Umaña PA Medication Management 06/18/2024 1:40 PM CDT Telemedicine [facility] [address] [place] [address] Dorota Umaña PA Telehealth (Anxiety - ER put him on fluoxetine and hydroxyzine ) 06/17/2024 Travel from Last 3 Months Immunizations Name Administration Dates Next Due AMB [...] Comments Blood Pressure 109/74 12/03/2023 2:23 PM POWER AND RECOVERY SUPERVISOR Pulse 72 12/03/2023 2:23 PM POWER AND RECOVERY SUPERVISOR Temperature 36.7 ??C (98 ??F) 12/03/2023 2:23 PM POWER AND RECOVERY SUPERVISOR Respiratory Rate 16 11/27/2023 7:55 AM POWER AND RECOVERY SUPERVISOR Oxygen Saturation 97% 12/03/2023 2:23 PM POWER AND RECOVERY SUPERVISOR Inhaled Oxygen Concentration - - Weight 84.7 kg (186 lb 12.8 oz) 12/03/2023 2:23 PM POWER AND RECOVERY SUPERVISOR Height 172.7 cm (5' 8) 12/03/2023 2:23 PM POWER AND RECOVERY SUPERVISOR Body Mass Index 28.4 12/03/2023 2:23 PM POWER AND RECOVERY SUPERVISOR Plan of Treatment Upcoming Encounters Date Type Department Care Team (Late st Contact Info) Description 07/07/2024 10:15 AM CDT Office Visit [facility] [address] [place] [address] Nga Vazquez NP [address] [place] [address] 07/30/2024 1:00 PM CDT Office Visit [facility] [address] [place] [address] Dorota Umaña PA [address] [place] [address] Health Maintenance Due Date Last Done Comments [...] Code Status Discussion: Reviewed Preferences Care Teams Escalation Engineer Relationship Specialty Start Date End Date Dorota Umaña [place] [address] PCP - General Physician Scooter Mechanic 04/26/24
--- NOTE | 2024-07-03 14:05 | ED_ITS ---
HPI - General Adult General Chief complaint: Flank Pain Stated complaint: Back and side pain Time Seen by Provider: 07/03/24 11:36 History of Present Illness HPI narrative: This 23-year-old male comes in reporting upper epigastric abdominal pain that began yesterday and is worsening today. He reports the pain is generally across the upper abdomen and seems now to radiate around toward his back. He states that he has had pancreatitis in the past but feels like this is a bit different. He reports that he did have some alcohol a couple days ago. He does not report any nausea or vomiting or diarrhea. He arrives here with normal vital signs. Related Data Previous Rx's ?Medication ?Instructions ?Recorded fluoxetine 20 mg capsule 20 mg PO QPM #20 caps 06/16/24 hydrocodone 5 mg-acetaminophen 325 1 tab PO Q4-6H PRN pain #15 tabs 07/03/24 mg tablet Allergies Allergy/AdvReac Type Severity Reaction Status Date / Time No Known Drug Allergies Allergy Verified 07/03/24 11:32 Review of Systems Status of ROS: Reports: 10 or more systems reviewed and unremarkable except as noted in History and below Narrative: Constitutional: No fevers, no weight gain or loss. Eyes: No discharge. No vision changes. HENT: No congestion, no sore throat, no ear pain. Cardiovascular: No chest pain, no palpitations. Respiratory: No shortness of breath, no wheezes, no cough. Gastrointestinal: No vomiting, no diarrhea. Upper epigastric abdominal pain. Genitourinary: No dysuria, no hematuria. Musculoskeletal: Normal range of motion. Skin: No rashes, no pruritis. Neurological: No dizziness, weakness, sensory change, speech change. Endo/Heme/Allergies: No bruising or bleeding. No polydipsia. Pysch: no suicidality, no anxiety, no insomnia. All other systems reviewed and are negative. 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) Sialoadenitis ?K11.20 - Sialoadenitis, unspecified (ICD-10) Nocturnal enuresis (08/09/13) ?N39.44 - Nocturnal enuresis (ICD-10) Insomnia (08/13/12) ?G47.00 - Insomnia, unspecified (ICD-10) Ganglion cyst (03/26/13) ?M67.40 - Ganglion, unspecified site (ICD-10) Contusion of left lower extremity ?S80.12XA - Contusion of left lower leg, initial encounter (ICD-10) Concussion ?S06.0X9A - Concussion with loss of consciousness of unspecified duration, initial encounter (ICD-10) Surgical History History of orthopedic surgery ?Z98.890 - Other specified postprocedural states (ICD-10) History of tonsillectomy (08/13/12) ?Z90.89 - Acquired absence of other organs (ICD-10) H/O nasal septoplasty (08/09/13) ?Z98.890 - Other specified postprocedural states (ICD-10) Family History Mother Breast cancer Social History Narrative: Single. No children. Formally exercise. Alcohol, weekends. No illicit drug use. Non-smoker. Smoking Status: Never smoker Second hand tobacco smoke exposure: No How often do you have a drink containing alcohol: 2-4 times a month How many standard drinks containing alcohol do you have on a typical day: 3 or 4 AUDIT-C Alcohol total score: 3 Non-prescribed substance use: denies use Caffeine: Yes Exam Narrative: Exam Narrative: Constitutional: Well-developed, well-nourished, no acute distress. HEENT: Normocephalic, atraumatic. Neck: Normal range of motion. Nontender. Supple. Heart: Regular. No murmurs. Normal rate. Intact distal pulses. Lungs: Clear to auscultation. No chest discomfort. No wheezes, rhonchi, or rales. Abdomen: Normal bowel sounds. Upper epigastric tenderness with mild guarding and some mild rebound symptoms. Genitalia: Deferred. Back: No midline tenderness. Normal range of motion. Extremities: Normal range of motion. No injury. Skin: Intact. No rash. Warm. No erythema or pallor. Neurologic: No altered sensation. No weakness. Alert and oriented. Psychiatric: No suicidality. No anxiety or depression. No insomnia. Nursing notes and vitals signs are reviewed. Const: Vital Signs, click to edit/add: Vital Signs - 24 hr 07/03/24 11:33 07/03/24 12:48 07/03/24 13:00 Temperature 97.3 F L Pulse Rate 82 87 Pulse Rate [Pulse Oximeter] 72 Respiratory Rate 16 Blood Pressure [Ri ght Upper Arm] 146/109 H Pulse Oximetry 97 95 92 Oxygen Delivery Me thod Room Air 07/03/24 13:15 07/03/24 13:36 07/03/24 13:45 Temperature Pulse Rate 87 77 72 Pulse Rate [Pulse Oximeter] Respiratory Rate Blood Pressure [Ri ght Upper Arm] Pulse Oximetry 97 95 97 Oxygen Delivery Me thod 07/03/24 14:00 Temperature Pulse Rate 75 Pulse Rate [Pulse Oximeter] Respiratory Rate Blood Pressure [Ri ght Upper Arm] Pulse Oximetry 94 Oxygen Delivery Me thod Course Vital Signs Vital signs: Initial Vital Signs Temperature 97.3 F L 07/03/24 11:33 Temperature Source Temporal Artery Scan 07/03/24 11:33 Pulse Rate 72 07/03/24 11:33 Respiratory Rate 16 07/03/24 11:33 Blood Pressure 146/109 H 07/03/24 11:33 Blood Pressure Mean 121 H 07/03/24 11:33 Blood Pressure Position High-Fowlers 07/03/24 11:33 Pulse Oximetry 97 07/03/24 11:33 Oxygen Delivery Method Room Air 07/03/24 11:33 Vital Signs Temperature 97.3 F L 07/03/24 11:33 Pulse Rate 72 07/03/24 11:33 Respiratory Rate 16 07/03/24 11:33 Blood Pressure 146/109 H 07/03/24 11:33 Pulse Oximetry 97 07/03/24 11:33 Oxygen Delivery Method Room Air 07/03/24 11:33 Temperature 97.3 F L 07/03/24 11:33 Pulse Rate 75 07/03/24 14:00 Respiratory Rate 16 07/03/24 11:33 Blood Pressure 146/109 H 07/03/24 11:33 Pulse Oximetry 94 07/03/24 14:00 Oxygen Delivery Method Room Air 07/03/24 11:33 Medications Administered Medications: Discontinued Medications Generic Name Dose Route Start Last Admin Trade Name Mirella PRN Reason Stop Dose Admin Hydromorphone HCl 0.5 mg 07/03/24 12:06 07/03/24 12:29 Hydromorphone 0.5 Mg/0.5 Ml Inj IVP 07/03/24 12:07 0.5 mg ONCE ONE Administration Ondansetron HCl 4 mg 07/03/24 12:06 07/03/24 12:29 Ondansetron 2 Mg/Ml Inj IVP 07/03/24 12:07 4 mg ONCE ONE Administration Medical Decision Making MDM Narrative Medical decision making narrative: This patient comes in with upper epigastric abdominal pain and does have some sign of rebound tenderness. An IV was established and labs are acquired. Labs returned with evidence of pancreatitis with a lipase around 1000. CT imaging of the abdomen and pelvis does confirm acute pancreatitis without any other significant findings. The patient did receive an IV dose of Dilaudid 0.5 mg which brought some temporary relief. I recommended and offered hospital admission to treat his symptoms of pancreatitis. The patient states that he wants to go home. He had is discharged home with a prescription for Bellona. I advised him return if needed. I also advised him to avoid alcohol at all costs as he has had recurrent pancreatitis. Lab Data Labs: Lab Results 07/03/24 Range/Units 12:15 WBC 11.81 H (4.50-11.00) K/uL RBC 5.15 (4.30-5.90) m/uL Hgb 16.2 (13.5-17.5) gm/dL Hct 44.9 (37.0-53.0) % MCV 87 (80-100) fL MCH 32 (26-34) pg MCHC 36 (32-36) gm/dL RDW Coeff of Moshe 11.9 (11.5-15.5) % Plt Count 160 (140-440) K/uL Neut % (Auto) 79.7 H (42.0-72.0) % Lymph % (Auto) 10.0 L (20-44) % [place] % (Auto) 9.2 (0.0-11.0) % Eos % (Auto) 0.6 (0.0-7.0) % Baso % (Auto) 0.2 (0.0-3.0) % Neut # (Auto) 9.40 H (1.7-7.0) K/uL Lymph # (Auto) 1.20 (0.90-2.90) K/uL [place] # (Auto) 1.10 H (0.00-0.90) K/UL Eos # (Auto) 0.10 (0.00-0.50) K/uL Baso # (Auto) 0.00 (0.00-0.30) K/uL Abs Immat Gran (auto) 0.00 (0.00-0.30) K/uL Imm/Tot Granulo (auto) 0.3 % Sodium 135 (135-149) mmol/L Potassium 3.9 (3.6-5.1) mmol/L Chloride 101 (96-114) mmol/L Carbon Dioxide 24 (20-32) mmol/L Anion Gap 10 (7-15) mEq/L BUN 12 (5-24) mg/dL Creatinine 0.7 (0.5-1.5) mg/dL Estimated Creat Clear 161.50 Estimated GFR 134 ml/min Glucose 112 (60-115) mg/dL Calcium 9.5 (8.4-10.6) mg/dL Total Bilirubin 1.3 (0.1-1.5) mg/dL Direct Bilirubin 0.3 (0.0-0.5) mg/dL AST 31 (12-35) U/L ALT 85 H (4-50) U/L Alkaline Phosphatase 53 (40-150) U/L Total Protein 7.4 (6.0-8.3) g/dL Albumin 4.8 (3.3-5.0) g/dL Lipase 1016 H (23-300) U/L Imaging Data CT scan - abdomen: Radiologist's impression: Acute pancreatitis. Discharge Plan Discharge Clinical Impression: Acute pancreatitis Patient Disposition: Home, Self-Care Condition: Stable Additional Instructions: Take liquids in use medicines for pain. Increase diet as tolerated. Follow up with MD return if worsening. Prescriptions: New hydrocodone-acetaminophen 5-325 mg tablet 1 tab PO Q4-6H PRN (Reason: pain) Qty: 15 0RF No Action fluoxetine 20 mg capsule 20 mg PO QPM Qty: 20 0RF Follow Up/Referrals: Provider,Not a Local [Primary Care Provider] - Stand Alone Forms: MyHealth Info Instructions
== END 2024-07-03 14:38 | disposition home or self-care (01) ==
PROVIDERS: Emergency Provider Emergency Medicine Emergency Medical Services
DX: K85.90 Acute pancreatitis without necrosis or infection, unspecified (principal)
CPT/HCPCS: 36415; 74177; 80048; 80076; 83690; 85025; 96374; 96375; 96376; 99284; 99285; J1170; J2405; Q9967

== ENCOUNTER 2024-09-05 02:38 | Emergency (ER) | payer OTHER, BC, MEDICAID, SELFPAY ==
[2024-09-05 02:43] VITALS: BP 156/110; PULSE 124; RESP 18; TEMP 36.6; O2SAT 96; BMI 28.2
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
--- OUTSIDE RECORDS SUMMARY | 2024-09-05 03:01 | XMS_ITS | Clinical Summary ---
Author Organization [facility] Address [place], [place] [address] Care Team Providers Care Photo Cartographer Name Role Phone Dorota Umaña Primary Care Provider Allergies No known active allergies Medications Medication Sig Dispensed Refills Start Date End Date Status FLUoxetine (PROZAC) 40 mg capsuleIndicatio ns:MAGALY (generalized anxiety disorder) Take 1 Capsule (40 mg) by mouth once daily in the morning. 30 Capsule 1 07/07/2024 Active hydrOXYzine pamoate (VISTARIL) 25 mg capsuleIndicatio ns:MAGALY (generalized anxiety disorder) TAKE 1-2 CAPSULES (25-50 MG) BY MOUTH 2 TIMES DAILY IF NEEDED FOR ANXIETY (SLEEP). 30 Capsule 09/02/2024 Active hydrOXYzine pamoate (VISTARIL) 25 mg capsuleIndicatio ns:MAGALY (generalized anxiety disorder) Take 1-2 Capsules (25-50 mg) by mouth 2 times daily if needed for Anxiety (sleep). 30 Capsule 1 07/07/2024 09/02/2024 Discontinued Active Problems Problem Noted Date Diagnosed Date Alcohol consumption of more than four drinks per week 07/07/2024 Alcohol-induced acute pancreatitis 04/14/2023 Recurrent instability of right knee joint 2022 Depression 03/08/2019 Gotebo-Schlatter's disease of left knee 06/28/20 15 Anxiety 12/28/2010 Hypertrophy of tonsils alone 08/28/2007 Epistaxis 08/28/2007 Allergic rhinitis, cause unspecified 08/28/2007 Acute suppurative otitis med ia without spontaneous rupture of eardrum 03/05/2007 Overview (03/05/2007): recurrent hx Encounters Date Type Department Care Team Description 08/30/[address] [facility] [address] [place] [address] Nga Vazquez, NAKUL Refill Request (Hydroxyzine Pamoate) 07/07/2024 10:15 AM CDT Telemedicine [facility] [address] [place] [address] Nga Vazquez NP Telehealth; Mental Health Intake (Opinion on anxiety and medications) 07/07/2024 Travel 07/05/[address] [facility] [address] [place] [address] Nga Vazquez NP Pre-Visit Intake 06/28/[address] [facility] [address] [place] [address] Dorota Umaña PA Medication Management 06/18/2024 1:40 PM CDT Telemedicine [facility] [address] [place] [address] Dorota Umaña PA Telehealth (Anxiety - ER [...] Answer Date Recorded PHQ-2 TOTAL SCORE 0 07/07/2024 Social Connections Answer Date Recorded Do you often feel lonely or isolated from those around you? 0 11/23/2023 Financial Resource Strain Answer Date R ecorded Difficulty of Paying Living Expenses 3 11/23/2023 Difficulty of Paying Living Expenses Not on file 11/23/2023 Food Insecurity Answer Date Recorded Do you worry your food will run out before you are able to buy more? 1 11/23/2023 Transportation Needs Answer Date Record ed Does lack of transportation keep you from medica l appointments? 1 11/23/2023 Does lack of transportation keep you from work, meetings or getting things that you need? 1 11/23/2023 Housing Stability Answer Date Recorded What is your housing situation today? 1 11/23/2023 Sex and Gender Information Value Date Recorded Sex Assigned at Not on file Gender Identity Not on file Sexual Orientation Not on file Obstetrics History Last Filed Vital Signs Vital Sign Reading Time Taken Comments Blood Pressure 109/74 12/03/2023 2:23 PM OCCUPATIONAL THERAPY SPECIALIST Pulse 72 12/03/2023 2:23 PM OCCUPATIONAL THERAPY SPECIALIST Temperature 36.7 C (98 F) 12/03/2023 2:23 PM OCCUPATIONAL THERAPY SPECIALIST Respiratory Rate 16 11/27/2023 7:55 AM OCCUPATIONAL THERAPY SPECIALIST Oxygen Saturation 97% 12/03/2023 2:23 PM OCCUPATIONAL THERAPY SPECIALIST Inhaled Oxygen Concentration - - Weight 84.7 kg (186 lb 12.8 oz) 12/03/2023 2:23 PM OCCUPATIONAL THERAPY SPECIALIST Height 172.7 cm (5' 8) 12/03/2023 2:23 PM OCCUPATIONAL THERAPY SPECIALIST Body Mass Index 28.4 12/03/2023 2:23 PM OCCUPATIONAL THERAPY SPECIALIST Plan of Treatment Health Maintenance Due Date Last Done Comments [...] for age 18+ 12/03/2024 12/03/2023, 02/12/2022, 07/19/2021 Tetanus booster 04/06/2025 04/06/2015 Depression screening for age 12+ 07/07/2025 07/07/20 24, 12/03/2023 Tdap Completed 04/06/2015 HPV series for age [...] Code Status Discussion: Reviewed Preferences Care Teams Photo Cartographer Relationship Specialty Start Date End Date Dorota Umaña PA [address] [place] [address] PCP - General Physician Asphalt Surface Heater Operator 04/26/24
== END 2024-09-05 03:04 ==
LOC: ED 03:00
PROVIDERS: Emergency Provider Family Medicine
DX: F10.120 Alcohol abuse with intoxication, uncomplicated (principal); V43.52XA Car driver injured in collision with other type car in traffic accident, initial encounter
CPT/HCPCS: 99283

== ENCOUNTER 2024-11-19 13:24 | Emergency (ER) | payer BC, MEDICAID, SELFPAY ==
--- OUTSIDE RECORDS SUMMARY | 2024-11-19 13:26 | XMS_ITS | Clinical Summary ---
Author Organization [facility] Address [place], [place] [address] Care Team Providers Care Weather Forecaster Name Role Phone Dorota Umaña Primary Care Provider Allergies No known active allergies Medications celecoxib (CELEBREX) 200 mg capsuleIndicat ions:Mechanica l low back pain Take 1 Capsule (200 mg) by mouth two times daily with meals. 60 Capsule 2 5 Active hydrOXYzine pamoate (VISTARIL) 25 mg capsuleIndicat ions:MAGALY (generalized anxiety disorder) TAKE 1-2 CAPSULES (25-50 MG) BY MOUTH 2 TIMES DAILY IF NEEDED FOR ANXIETY (SLEEP). 90 Capsule 5 Active FLUoxetine (PROZAC) 40 mg capsuleIndicat ions:MAGALY (generalized anxiety disorder) TAKE 1 CAPSULE (40 MG) BY MOUTH ONCE DAILY IN THE MORNING. 90 Capsule 5 Active hydrOXYzine pamoate (VISTARIL) 25 mg capsuleIndicat ions:MAGALY (generalized anxiety disorder) TAKE 1-2 CAPSULES (25-50 MG) BY MOUTH 2 TIMES DAILY IF NEEDED FOR ANXIETY (SLEEP). 30 Capsule 4 025 Discontinued FLUoxetine (PROZAC) 40 mg capsuleIndicat ions:MAGALY (generalized anxiety disorder) TAKE 1 CAPSULE (40 MG) BY MOUTH ONCE DAILY IN THE MORNING. 30 Capsule 4 02/07/2 025 Discontinued Active Problems Problem Noted Date Diagnosed Date Alcohol consumption of more than four drinks per week 07/07/2024 Alcohol-induced acute pancreatitis 04/14/2023 Recurrent instability of right knee joint 2022 Depression 03/08/2019 Brewster-Schlatter's disease of left knee 06/28/20 15 Anxiety 12/28/2010 Hypertrophy of tonsils alone 08/28/2007 Epistaxis 08/28/2007 Allergic rhinitis, cause unspecified 08/28/2007 Acute suppurative otitis med ia without spontaneous rupture of eardrum 03/05/2007 Overview (03/05/2007): recurrent hx Encounters Date Type Department Care Team Description 11/02/2024 Refill [facility] [address] [place] [address] Nga Vazquez NP Refill Request (Hydroxyzine Pamoate, Fluoxetine) 2024 4:45 PM EXECUTIVE COACH Ancillary Procedure [facility] [address] [place] [address] 2024 4:20 PM EXECUTIVE COACH Office Visit [facility] [address] [place] [address] Adria Guzman MD Musculoskeletal Problem (Consult back pain ) 10/27/2024 Travel 09/10/2024 Refill [facility] [address] [place] [address] Nga Vazquez NP Refill Request (Fluoxetine) 08/30/2024 Refill [facility] [address] [place] [address] Nga Vazquez NP Refill Request (Hydroxyzine Pamoate) from Last 3 Months Immunizations Name Administration [...] is your housing situation today? 1 11/23/2023 Interpersonal Safety Answer Date Record ed Are you being hit, kicked, p ushed or yelled at (see row info)? No 11/23/2023 Interpersonal Safety Abuse 12 - 18 Not on file 11/23/2023 Interpersonal Safety Ambulatory Vulnerability No t on file 11/23/2023 Utilities Answer Date Recorded Do you have trouble paying f or utilities (for example, heat, electricity, water, phone)? 1 11/23/2023 Sex and Gender Information Value Date Recorded Sex Assigned at Not on file Legal Sex Male 5:19 AM EXECUTIVE COACH Gender Identity Not on file Sexual Orientation Not on file Obstetrics History Last Filed Vital Signs Vital Sign Reading Time Taken Comments Blood Pressure 155/87 2024 4:17 PM EXECUTIVE COACH Pulse 98 2024 4:17 PM EXECUTIVE COACH Temperature 36.3 C (97.4 F) 2024 4:17 PM EXECUTIVE COACH Respiratory Rate 16 11/27/2023 7:55 AM EXECUTIVE COACH Oxygen Saturation 97% 2024 4:17 PM EXECUTIVE COACH Inhaled Oxygen Concentration - - Weight 84.7 kg (186 lb 12.8 oz) 12/03/2023 2:23 PM EXECUTIVE COACH Height 172.7 cm (5' 8) 12/03/2023 2:23 PM EXECUTIVE COACH Body Mass Index 28.4 12/03/2023 2:23 PM EXECUTIVE COACH Plan of Treatment Health Maintenance Due Date Last Done Comments HIV for age 15-65 2017 Hepatitis C screening for ag e 18-79 2020 Pneumococcal series for age 6-49 (1 of 2 - PCV) 2021 11/02/2003, 05/06/2003, 02/25/2003, Additional history exists COVID-19 vaccine series ( season) 2024 Influenza for age 9-49 06/06/2024 7, 07/21/2009, 08/06/2004 BMI (ht and wt on same day) for age 18+ 12/03/2024 12/03/2023, 02/12/2022, 07/19/2021 Tetanus booster 04/06/2025 04/06/2015 Depression screening for age 12+ 07/07/2025 07/07/20 24, 12/03/2023 Tdap Completed 04/06/2015 HPV series for age 9-26 Completed 05/29/2020, 08/05 Procedures Procedure Name Priority Date/Time Associated Diagnosis Comments XR SPINE LUMBAR 2 VIEWS Routine 2024 4:49 PM EXECUTIVE COACH Back pain without radiation from Last 3 Months Results * XR SPINE LUMBAR 2 VIEWS (2024 4:49 PM EXECUTIVE COACH) Anatomical Region Laterality Modality LUMBAR SPINE Computed Radiogr aphy 10/29/2024 9:53 AM EXECUTIVE COACH Impressions 10/29/2024 9:53 AM EXECUTIVE COACH Negative two-view lumbar spine. Dictated by Casper Blancas MD @ 10/29/2024 9:53:23 AM (Electronically Signed) Narrative 10/29/2024 9:53 AM EXECUTIVE COACH For Patients: As a result of the Cures Act, medical imaging exams and procedure reports are released immediately into your electronic medical record. You may view this report before your referring provider. If you have questions, please contact your health care provider. INDICATION: Back pain without radiation. TECHNIQUE: Two views of the lumbar spine. COMPARISON: None. FINDINGS: No acute lumbar spine fracture or acute malalignment. The disc interspaces are well preserved. The visualized upper sacrum is unremarkable. Procedure Note Casper Blancas MD - 10/29/2024 For Patients: As a result of the Cures Act, medical imagingexams and procedure reports are released immediately into your electronicmedical record. You may view this report before your referring provider.If you have questions, please contact your health care provider. INDICATION: Back pain without radiation. TECHNIQUE: Two views of the lumbar spine. COMPARISON: None. FINDINGS: No acute lumbar spine fracture or acute malalignment. The disc interspaces are well preserved. The visualized upper sacrum is unremarkable. IMPRESSION: Negative two-view lumbar spine. Dictated by Casper Blancas MD @ 10/29/2024 9:53:23 AM (Electronically Signed) Adria Guzman MD GENERAL IMAGING Final Resu lt from Last 3 Months Insurance MEDICAID [facility] MEDICAID Advance Directives * Full Code (Latest Code Status on File) Date Activated Date Inactivated Comments 11/23/2023 11:31 AM 11/27/2023 12:55 PM Question Answer Comments Code Status Discussion: Reviewed Preferences * Full Code Date Activated Date Inactivated Comments 04/14/2023 10:30 AM 04/17/2023 1:05 PM Question Answer Comments Code Status Discussion: Reviewed Preferences Care Teams Weather Forecaster Relationship Specialty Start Date End Date Dorota Umaña PA [address] [place] [address] PCP - General Physician Forming Acid Dumper 04/26/24
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
--- OUTSIDE RECORDS SUMMARY | 2024-11-19 13:26 | XMS_ITS | Clinical Summary ---
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 Gender Identity Not on file Sexual Orientation Not on file Last Filed Vital Signs Vital Sign Reading Time Taken Comments Blood Pressure 126/73 03/13/2019 9:00 AM CDT Pulse 98 03/13/2019 9:00 AM CDT Temperature 36.3 C (97.3 F) 03/13/2019 9:00 AM CDT Respiratory Rate 16 03/13/2019 9:00 AM CDT Oxygen Saturation 98% 03/09/2019 8:28 AM CDT Inhaled Oxygen Concentration - - Weight 64.4 kg (142 lb) 03/13/2019 8:51 AM CDT Height 170.2 cm (5' 7) 03/09/2019 7:00 PM CDT Body Mass Index 22.24 03/09/2019 7:00 PM CDT Plan of Treatment Not on file Insurance 56TERE Fox [id number] [place] [address] [place] Advance Directives For more information, please contact: [phone] * Full Code (Latest Code Status on File) Date Activated Date Inactivated Comments 03/08/2019 2:28 AM 03/13/2019 2:56 PM Question Answer Comments Code status determined by: Discussion with christie nt/legal decision maker Care Teams Speed Winder Relationship Specialty Start Date End Date Kavon Roach MD [facility] [address] [place] [address] PCP - General Pediatrics 02/22/19
[2024-11-19 13:43] VITALS: BP 153/100; PULSE 110; RESP 18; TEMP 37.2; O2SAT 96; BMI 29.7
--- NOTE | 2024-11-19 14:26 | ED.GENADULT ---
HPI - General Adult General Chief complaint: Back Injury/Pain Stated complaint: Severe back pain Time Seen by Provider: 11/19/24 13:56 Source: patient Mode of arrival: ambulatory Limitations: no limitations History of Present Illness HPI narrative: 24-year-old male presents today with back pain that started about 2 days ago. Pain is located across the lower back. Movement makes the pain worse. He denies any fevers, chills, nausea or vomiting. If he is lying still the pain is better. He denies any numbness or saddle anesthesia. He denies any loss of bowel or bladder control. He states that he has had pain like this before but has never been quite as aggressive. It came on slowly. He woke up feeling tightness in his back 1 day and then the next day the pain was worse. He denies pain with deep inspiration, not short of breath. He denies pain with urination or any flank discomfort. Related Data Home Medications ?Medication ?Instructions ?Recorded ?Confirmed fluoxetine 40 mg capsule 40 mg PO QAM 11/19/24 11/19/24 Previous Rx's ?Medication ?Instructions ?Recorded ketorolac 10 mg tablet 10 mg PO TID 5 days #15 tabs 11/19/24 Allergies Allergy/AdvReac Type Severity Reaction Status Date / Time No Known Drug Allergies Allergy Verified 11/19/24 13:49 Review of Systems Status of ROS: Reports: 10 or more systems reviewed and unremarkable except as noted in History and below [facility] Medical History Right rotator cuff tear ?M75.101 - Unspecified rotator cuff tear or rupture of right shoulder, not specified as traumatic (ICD-10) Bella-Schlatter's disease of left lower extremity ?M92.522 - Juvenile osteochondrosis of tibia tubercle, left leg (ICD-10) 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) Sialoadenitis ?K11.20 - Sialoadenitis, unspecified (ICD-10) Nocturnal enuresis (08/09/13) ?N39.44 - Nocturnal enuresis (ICD-10) Insomnia (08/13/12) ?G47.00 - Insomnia, unspecified (ICD-10) Ganglion cyst (03/26/13) ?M67.40 - Ganglion, unspecified site (ICD-10) Contusion of left lower extremity ?S80.12XA - Contusion of left lower leg, initial encounter (ICD-10) Concussion ?S06.0X9A - Concussion with loss of consciousness of unspecified duration, initial encounter (ICD-10) Surgical History History of orthopedic surgery ?Z98.890 - Other specified postprocedural states (ICD-10) History of tonsillectomy (08/13/12) ?Z90.89 - Acquired absence of other organs (ICD-10) H/O nasal septoplasty (08/09/13) ?Z98.890 - Other specified postprocedural states (ICD-10) Family History Mother Breast cancer Social History Narrative: Single. No children. Formally exercise. Alcohol, weekends. No illicit drug use. Non-smoker. Smoking Status: Never smoker Second hand tobacco smoke exposure: No How often do you have a drink containing alcohol: 2-4 times a month How many standard drinks containing alcohol do you have on a typical day: 3 or 4 AUDIT-C Alcohol total score: 3 Non-prescribed substance use: denies use Caffeine: Yes Exam Narrative: Exam Narrative: Well-nourished well-developed patient, obviously uncomfortable. Alert and oriented. Answers questions appropriately. Mood and affect are appropriate. Thoughts are goal oriented and rational. No tangential or magical thinking noted. Patient speaks in full sentences without needing to catch his breath. HEENT: Normocephalic atraumatic. Pupils are equally round reactive to light. Extraocular muscles are intact. Conjunctivae are moist without any icterus noted. Moist mucous membranes. Cardiovascular: Heart is regular rate and rhythm S1 and S2 are present without any murmurs. Lungs: Clear to auscultation bilaterally no wheezes rhonchi or rales are appreciated. Patient takes deep breaths without any discomfort. Abdomen: Soft and nontender nondistended with normal bowel sounds. Extremities: Bilateral lower extremities are without edema. Skin: Well perfused without any obvious rashes. Back: Normal appearance. Patient has tenderness to palpation over the paraspinal musculature of the lumbar spine. No tenderness over the thoracic or lumbar spine itself. Strength is 5/5 of the upper and lower extremities. Reflexes are 2+ and symmetric at the knees. Const: Vital Signs, click to edit/add: Vital Signs - 24 hr 11/19/24 13:43 Temperature 98.9 F Pulse Rate [Right Pulse Oximeter] 110 H Respiratory Rate 18 Blood Pressure [Ri ght Upper Arm] 153/100 H Pulse Oximetry 96 Oxygen Delivery Me thod Room Air Course Course ED Course: Symptoms most likely consistent with back spasm and low back pain without radiculopathy. While in the ED patient received a dose of IM Toradol and oral Flexeril. Vital Signs Vital signs: Initial Vital Signs Temperature 98.9 F 11/19/24 13:43 Temperature Source Temporal Artery Scan 11/19/24 13:43 Pulse Rate 110 H 11/19/24 13:43 Respiratory Rate 18 11/19/24 13:43 Blood Pressure 153/100 H 11/19/24 13:43 Blood Pressure Mean 117 H 11/19/24 13:43 Blood Pressure Position Sitting 11/19/24 13:43 Pulse Oximetry 96 11/19/24 13:43 Oxygen Delivery Method Room Air 11/19/24 13:43 Vital Signs Temperature 98.9 F 11/19/24 13:43 Pulse Rate 110 H 11/19/24 13:43 Respiratory Rate 18 11/19/24 13:43 Blood Pressure 153/100 H 11/19/24 13:43 Pulse Oximetry 96 11/19/24 13:43 Oxygen Delivery Method Room Air 11/19/24 13:43 Temperature 98.9 F 11/19/24 13:43 Pulse Rate 110 H 11/19/24 13:43 Respiratory Rate 18 11/19/24 13:43 Blood Pressure 153/100 H 11/19/24 13:43 Pulse Oximetry 96 11/19/24 13:43 Oxygen Delivery Method Room Air 11/19/24 13:43 Medical Decision Making MDM Narrative Medical decision making narrative: 24-year-old male with acute low back pain. We discussed physical therapy, heat, NSAIDs and reasons to follow up in the ER. Discharge Plan Discharge Clinical Impression: Strain of lumbar region Patient Disposition: Home, Self-Care Condition: Stable Additional Instructions: Okay to use heat several times per day, do not use heat directly on the skin and do not use for more than 20 minutes at a time. Okay to use Toradol as needed for pain. Use with food. Recommend gentle stretching and gentle moving daily. Follow-up with your primary care provider, physical therapy will likely be beneficial so that this does not happen again. Return to the emergency department if you develop fevers, chills, vomiting or worsening pain. Prescriptions: New ketorolac 10 mg tablet 10 mg PO TID 5 Days Qty: 15 0RF No Action fluoxetine 40 mg capsule 40 mg PO QAM Follow Up/Referrals: Provider,Not a Local [Primary Care Provider] - Stand Alone Forms: SocialGOth Info Instructions
[2024-11-19] MEDS: CYCLOBENZAPRINE HCL 10 MG TABLET PO (14:36)
[2024-11-19] MEDS: KETOROLAC 30 MG/ML inj 60 MG IM (14:36)
--- OUTSIDE RECORDS SUMMARY | 2024-11-19 14:50 | XMS_ITS | Encounter Summary ---
Author Organization [place] Address [facility] 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 B: Pt was BIB his mother to the ED for evaluation of SI. Pt was seen at the [place] ED on 02/22/19for similar presentation. Pt has been threatening suicide with statements about him walking out into traffic. Pt's father in a snowmobile accident in November of 2018 and the pt was part of the search libertarian. Pt's girlfriend recently broke up with him. Pt has lost 20 lbs since November and has lost interest in everything. Pt has no hx of inpatient mental health treatment. Pt denies hx of prior suicide attempts. No drug use is suspected. A: Voluntary. R: at home independent call center agent paged at 2320 to review for placement on 7A/Sharma/Belia. at home independent call center agent approved admission at 2322. Unit notified at 2325. ED notified at 2326. documented in this encounter Plan of Treatment Not on file documented as of this encounter Visit Diagnoses Not on filedocumented in this encounter Care Teams Tar Kettle Runner Relationship Specialty Start Date End Date Kavon Roach MD [address] [address] PCP - General Pediatrics 02/22/19 documented as of this encounter
--- OUTSIDE RECORDS SUMMARY | 2024-11-19 14:50 | XMS_ITS | Clinical Summary ---
Author Organization [facility] Address [place], [place] [address] Care Team Providers Care Personal Attendant Name Role Phone Dorota Umaña Primary Care [...] of right knee joint 2022 Depression 03/08/2019 [place]-Schlatter's disease of left knee 06/28/20 15 Anxiety 12/28/2010 Hypertrophy of tonsils alone 08/28/2007 Epistaxis 08/28/2007 Allergic rhinitis, cause unspecified 08/28/2007 Acute suppurative otitis med ia without spontaneous rupture of eardrum 03/05/2007 Overview (03/05/2007): recurrent hx Encounters Date Type Department Care Team Description 11/02/2024 Refill [facility] [address] [place] [address] Nga Vazquez NP Refill Request (Hydroxyzine Pamoate, Fluoxetine) 2024 4:45 PM INFORMATION SYSTEMS TECHNICIAN Ancillary Procedure [facility] [address] [place] [address] 2024 4:20 PM INFORMATION SYSTEMS TECHNICIAN Office Visit [facility] [address] [place] [address] Adria Guzman MD Musculoskeletal Problem (Consult back pain ) 10/27/2024 Travel 09/10/2024 Refill [facility] [address] [place] [address] Nga Vazquez NP Refill Request (Fluoxetine) 08/30/2024 Refill [facility] [address] [place] [address] Nga Vazquez NP Refill Request (Hydroxyzine Pamoate) [...] on file Legal Sex Male 5:19 AM INFORMATION SYSTEMS TECHNICIAN Gender Identity Not on file Sexual Orientation Not on file Obstetrics History Last Filed Vital Signs Vital Sign Reading Time Taken Comments Blood Pressure 155/87 2024 4:17 PM INFORMATION SYSTEMS TECHNICIAN Pulse 98 2024 4:17 PM INFORMATION SYSTEMS TECHNICIAN Temperature 36.3 C (97.4 F) 2024 4:17 PM INFORMATION SYSTEMS TECHNICIAN Respiratory Rate 16 11/27/2023 7:55 AM INFORMATION SYSTEMS TECHNICIAN Oxygen Saturation 97% 2024 4:17 PM INFORMATION SYSTEMS TECHNICIAN Inhaled Oxygen Concentration - - Weight 84.7 kg (186 lb 12.8 oz) 12/03/2023 2:23 PM INFORMATION SYSTEMS TECHNICIAN Height 172.7 cm (5' 8) 12/03/2023 2:23 PM INFORMATION SYSTEMS TECHNICIAN Body Mass Index 28.4 12/03/2023 2:23 PM INFORMATION SYSTEMS TECHNICIAN Plan of Treatment Health Maintenance Due Date [...] LUMBAR 2 VIEWS Routine 2024 4:49 PM INFORMATION SYSTEMS TECHNICIAN Back pain without radiation from Last 3 Months Results * XR SPINE LUMBAR 2 VIEWS (2024 4:49 PM INFORMATION SYSTEMS TECHNICIAN) Anatomical Region Laterality Modality LUMBAR SPINE Computed Radiogr aphy 10/29/2024 9:53 AM INFORMATION SYSTEMS TECHNICIAN Impressions 10/29/2024 9:53 AM INFORMATION SYSTEMS TECHNICIAN Negative two-view lumbar spine. Dictated by Casper Blancas MD @ 10/29/2024 9:53:23 AM (Electronically Signed) Narrative 10/29/2024 9:53 AM INFORMATION SYSTEMS TECHNICIAN For Patients: As a result of the [...] lt from Last 3 Months Insurance MEDICAID [facility] MEDICAID Advance Directives * Full Code (Latest Code Status on File) Date Activated Date Inactivated Comments 11/23/2023 11:31 AM 11/27/2023 12:55 PM Question Answer Comments Code Status Discussion: Reviewed Preferences * Full Code Date Activated Date Inactivated Comments 04/14/2023 10:30 AM 04/17/2023 1:05 PM Question Answer Comments Code Status Discussion: Reviewed Preferences Care Teams Personal Attendant Relationship Specialty Start Date End Date Dorota Umaña PA [address] [place] [address] PCP - General Physician Agricultural Agent 04/26/24
--- OUTSIDE RECORDS SUMMARY | 2024-11-19 14:50 | XMS_ITS | Clinical Summary ---
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 Gender Identity Not on file Sexual Orientation [...] Treatment Not on file Insurance 56TERE Fox [address] [place] [address] [place] Advance Directives For more information, please contact: [phone] * Full Code (Latest Code Status on File) Date Activated Date Inactivated Comments 03/08/2019 2:28 AM 03/13/2019 2:56 PM Question Answer Comments Code status determined by: Discussion with christie nt/legal decision maker Care Teams Investment Officer Relationship Specialty Start Date End Date Kavon Roach MD [facility] [address] [place] [address] PCP - General Pediatrics 02/22/19
== END 2024-11-19 14:58 | disposition home or self-care (01) ==
LOC: ED 14:48
PROVIDERS: Emergency Provider Family Medicine
DX: S39.012A Strain of muscle, fascia and tendon of lower back, initial encounter (principal)
CPT/HCPCS: 96372; 99284; A9270; J1885

== ENCOUNTER 2025-02-08 07:52 | Emergency (ER) | payer BC, MEDICAID, SELFPAY ==
--- OUTSIDE RECORDS SUMMARY | 2025-02-08 07:54 | XMS_ITS | Clinical Summary ---
Author Organization [facility] Address [facility] [place] [address] Care Team Providers Care Director Employment Name Role Phone Dorota Umaña Primary Care Provider Allergies No known active allergies Medications celecoxib (CELEBREX) 200 mg capsuleIndicati ons:Mechanical low back pain Take 1 Capsule (200 mg) by mouth two times daily with meals. 60 Capsule 2 2024 Active hydrOXYzine pamoate (VISTARIL) 25 mg capsuleIndicati ons:MAGALY (generalized anxiety disorder) TAKE 1-2 CAPSULES (25-50 MG) BY MOUTH 2 TIMES DAILY IF NEEDED FOR ANXIETY (SLEEP). 90 Capsule 11/12/2024 Active FLUoxetine (PROZAC) 40 mg capsuleIndicati ons:MAGALY (generalized anxiety disorder) TAKE 1 CAPSULE (40 MG) BY MOUTH ONCE DAILY IN THE MORNING. 90 Capsule 11/12/2024 Active Active Problems Problem Noted Date Diagnosed Date Alcohol consumption of more than four drinks per week 07/07/2024 Alcohol-induced acute pancreatitis 04/14/2023 Recurrent instability of right knee joint 2022 Depression 03/08/2019 [place]-Schlatter's disease of left knee 06/28/20 15 Anxiety 12/28/2010 Hypertrophy of tonsils alone 08/28/2007 Epistaxis 08/28/2007 Allergic rhinitis, cause unspecified 08/28/2007 Acute suppurative otitis med ia without spontaneous rupture of eardrum 03/05/2007 Overview (03/05/2007): recurrent hx Immunizations Immunization Administration Dates Next Due AMB Influenza, IIV3 [...] on file Legal Sex Male 5:19 AM PROGRAM MGR Gender Identity Not on file Sexual Orientation Not on file Obstetrics History Last Filed Vital Signs Vital Sign Reading Time Taken Comments Blood Pressure 155/87 2024 4:17 PM PROGRAM MGR Pulse 98 2024 4:17 PM PROGRAM MGR Temperature 36.3 C (97.4 F) 2024 4:17 PM PROGRAM MGR Respiratory Rate 16 11/27/2023 7:55 AM PROGRAM MGR Oxygen Saturation 97% 2024 4:17 PM PROGRAM MGR Inhaled Oxygen Concentration - - Weight 84.7 kg (186 lb 12.8 oz) 12/03/2023 2:23 PM PROGRAM MGR Height 172.7 cm (5' 8) 12/03/2023 2:23 PM PROGRAM MGR Body Mass Index 28.4 12/03/2023 2:23 PM PROGRAM MGR Plan of Treatment Health Maintenance Due Date Last Done Comments HIV for age 15-65 2017 Hepatitis C screening for age 18-79 2020 COVID-19 vaccine series ( season) 2024 BMI (ht and wt on same day) for age 18+ 12/03/2024 12/03/2023, 02/12/2022, 07/19/2021 Tetanus booster 04/06/2025 04/06/2015 Influenza Vaccine (Season Ended) 2025 08/05/2017, 07/21/2009, 08/06/2004 Depression screening for age 12+ 07/07/2025 07/07/2024, 12/03/2023 Pneumococcal series for age 6-49 Aged Out 11/02/2003, 05/06/2003, 02/25/2003, Additional history exists No longer eligible based on patient's age to complete this topic Tdap Completed 04/06/2015 HPV series for age 9-26 Completed 05/29/2020, 08/05 Insurance MEDICAID [facility] MEDICAID Advance Directives * Full Code (Latest Code Status on File) Date Activated Date Inactivated Comments 11/23/2023 11:31 AM 11/27/2023 12:55 PM Question Answer Comments Code Status Discussion: Reviewed Preferences * Full Code Date Activated Date Inactivated Comments 04/14/2023 10:30 AM 04/17/2023 1:05 PM Question Answer Comments Code Status Discussion: Reviewed Preferences Care Teams Director Employment Relationship Specialty Start Date End Date Dorota Umaña PA [address] [place] [address] PCP - General Physician Vending Mechanic 04/26/24
--- OUTSIDE RECORDS SUMMARY | 2025-02-08 07:54 | XMS_ITS | Encounter Summary ---
Author Organization [place] Address [facility] 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 B: Pt was BIB his mother to the ED for evaluation of SI. Pt was seen at the [place] ED on 02/22/19for similar presentation. Pt has [...] drug use is suspected. A: Voluntary. R: business economist paged at 2320 to review for placement on 7A/Sharma/Belia. business economist approved admission at 2322. Unit notified at 2325. ED notified at 2326. documented in this encounter Plan of Treatment Not on file documented as of this encounter Visit Diagnoses Not on filedocumented in this encounter Care Teams Manager Respiratory Care Relationship Specialty Start Date End Date Kavon Roach MD [address] [address] PCP - General Pediatrics 02/22/19 documented as of this encounter
--- OUTSIDE RECORDS SUMMARY | 2025-02-08 07:54 | XMS_ITS | Clinical Summary ---
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 Gender Identity Not on file Sexual Orientation [...] Treatment Not on file Insurance 56TERE Fox [address] [place] [address] [place] Advance Directives For more information, please contact: [phone] * Full Code (Latest Code Status on File) Date Activated Date Inactivated Comments 03/08/2019 2:28 AM 03/13/2019 2:56 PM Question Answer Comments Code status determined by: Discussion with christie nt/legal decision maker Care Teams Speedboat Driver Relationship Specialty Start Date End Date Kavon Roach MD [facility] [address] [place] [address] PCP - General Pediatrics 02/22/19
[2025-02-08 08:00] VITALS: BP 148/103; PULSE 83; RESP 18; TEMP 35.9; O2SAT 97; BMI 30.3
--- NOTE | 2025-02-08 08:04 | ED_ITS ---
HPI - Back Pain/Injury General Time Seen by Provider: 08:04 Date Seen: 02/08/25 Chief Complaint: Back Injury/Pain Stated Complaint: back pain Time Seen by Provider: 02/08/25 08:04 Source: patient and RN notes reviewed Mode of arrival: ambulatory Limitations: no limitations History of Present Illness HPI Narrative: Valentin is a very pleasant 24-year-old male previously healthy who presents to the emergency room with his mother for evaluation of back pain. Valentin notes that he awoke at 0300 hours with pain down his low back radiating to both sides perhaps the left side a little bit worse than the right. It is worse with movement. He did take some ibuprofen this morning. His mother requests a note for work. He does agree that this feels similar to the pain he experienced in November. At that time he did follow-up with [facility] other sports official Dr. Guzman at which time he had x-rays that he thought were normal. He was supposed to follow-up with physical therapy but has not had time to do so. He cannot recall any specific injury fall trauma or activity yesterday that would have caused this. He denies any dysuria hematuria history of kidney stones. He has not had any vomiting abdominal pain fever or chills. He denies any leg symptoms at this time. No loss of bowel or bladder control. Related Data Home Medications ?Medication ?Instructions ?Recorded ?Confirmed fluoxetine 40 mg capsule 40 mg PO QAM 11/19/24 02/08/25 Previous Rx's ?Medication ?Instructions ?Recorded ketorolac 10 mg tablet 10 mg PO TID 5 days #15 tabs 11/19/24 Allergies Allergy/AdvReac Type Severity Reaction Status Date / Time No Known Drug Allergies Allergy Verified 02/08/25 08:00 Review of Systems Status of ROS: Reports: 6 or more systems reviewed and unremarkable except as noted in History and below [facility] Medical History Right rotator cuff tear ?M75.101 - Unspecified rotator cuff tear or rupture of right shoulder, not specified as traumatic (ICD-10) Bella-Schlatter's disease of left lower extremity ?M92.522 - Juvenile osteochondrosis of tibia tubercle, left leg (ICD-10) 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) Sialoadenitis ?K11.20 - Sialoadenitis, unspecified (ICD-10) Nocturnal enuresis (08/09/13) ?N39.44 - Nocturnal enuresis (ICD-10) Insomnia (08/13/12) ?G47.00 - Insomnia, unspecified (ICD-10) Ganglion cyst (03/26/13) ?M67.40 - Ganglion, unspecified site (ICD-10) Contusion of left lower extremity ?S80.12XA - Contusion of left lower leg, initial encounter (ICD-10) Concussion ?S06.0X9A - Concussion with loss of consciousness of unspecified duration, initial encounter (ICD-10) Surgical History History of orthopedic surgery ?Z98.890 - Other specified postprocedural states (ICD-10) History of tonsillectomy (08/13/12) ?Z90.89 - Acquired absence of other organs (ICD-10) H/O nasal septoplasty (08/09/13) ?Z98.890 - Other specified postprocedural states (ICD-10) Family History Mother Breast cancer Social History Narrative: Single. No children. Formally exercise. Alcohol, weekends. No illicit drug use. Non-smoker. Smoking Status: Never smoker Do you use any of these nicotine containing products: None Second hand tobacco smoke exposure: No How often do you have a drink containing alcohol: 2-4 times a month How many standard drinks containing alcohol do you have on a typical day: 3 or 4 AUDIT-C Alcohol total score: 3 Non-prescribed substance use: denies use Caffeine: Yes service: No Exam Narrative: Exam Narrative: Alert and oriented. Nontoxic in appearance. Able to move but does so slowly when getting up from a semi recumbent position. Examination of the back shows no unusual rashes areas of ecchymoses. Palpation down the thoracic and lumbar spine does yet not yield any discomfort. Perhaps slight bit of discomfort noted on the left posterior superior iliac spine. Lower extremities without edema. Moving lower extremities without difficulty and ambulating appropriately upon departure. Heart with regular rate and rhythm and lungs are clear bilaterally. Const: Vital Signs, click to edit/add: Vital Signs - 24 hr 02/08/25 08:00 Temperature 96.6 F L Pulse Rate [Pulse Oximeter] 83 Respiratory Rate 18 Blood Pressure [Ri ght Upper Arm] 148/103 H Pulse Oximetry 97 Oxygen Delivery Me thod Room Air Documenting provider has reviewed patient's vital signs: yes Course Course ED Course: Differential diagnosis includes but is not limited to lumbar strain, ureteral colic, UTI, pyelonephritis. At this time patient has no red flag symptoms. Will repeat previous treatment as in November. Toradol 30 mg IM. Because this came on so suddenly will also check urine to ensure no evidence of hematuria. At this time given exam and previous films from [facility] do not feel he needs any further imaging at this time. Vital Signs Vital signs: Initial Vital Signs Temperature 96.6 F L 02/08/25 08:00 Temperature Source Temporal Artery Scan 02/08/25 08:00 Pulse Rate 83 02/08/25 08:00 Respiratory Rate 18 02/08/25 08:00 Blood Pressure 148/103 H 02/08/25 08:00 Blood Pressure Mean 118 H 02/08/25 08:00 Blood Pressure Position Sitting 02/08/25 08:00 Pulse Oximetry 97 02/08/25 08:00 Oxygen Delivery Method Room Air 02/08/25 08:00 Vital Signs Temperature 96.6 F L 02/08/25 08:00 Pulse Rate 83 02/08/25 08:00 Respiratory Rate 18 02/08/25 08:00 Blood Pressure 148/103 H 02/08/25 08:00 Pulse Oximetry 97 02/08/25 08:00 Oxygen Delivery Method Room Air 02/08/25 08:00 Temperature 96.6 F L 02/08/25 08:00 Pulse Rate 83 02/08/25 08:00 Respiratory Rate 18 02/08/25 08:00 Blood Pressure 148/103 H 02/08/25 08:00 Pulse Oximetry 97 02/08/25 08:00 Oxygen Delivery Method Room Air 02/08/25 08:00 Medications Administered Medications: Discontinued Medications Generic Name Dose Route Start Last Admin Trade Name Freq PRN Reason Stop Dose Admin Ketorolac Tromethamine 30 mg 02/08/25 08:13 02/08/25 08:21 Ketorolac 30 Mg/Ml Inj IM 02/08/25 08:14 30 mg ONCE ONE Administration MDM - Back Pain/Injury MDM Narrative Medical decision making narrative: 1. Low back pain-Toradol 30 mg IM given in the ED. Patient should alternate Tylenol 1000 mg and ibuprofen 600 mg every 4 hours as needed for discomfort. Would recommend ice to back as needed. Physical therapy referral made from the ED. Follow-up should be to his primary physician. Return for worsening symptoms such as loss of bowel or bladder control increasing leg pain leg weakness vomiting or fever. Urinalysis without evidence of hematuria. 2. Disposition-home at this time. His mom present and is loving and supportive. Flexeril 10 mg p.o. t.i.d. p.r.n. muscle spasm. Warning to family that this does cause sedation so she should not be taking with any other medication that would cause sleepiness, with alcohol, or prior to working. A note for work is given today. Upon my return to exam room for further evaluation patient had already departed. Nursing staff did not realize that I had further questions for patient and had discharge the patient. I called Valentin at home, informed him that his urine did have any evidence of blood but that he was dehydrated. He said that he is currently drinking water and he does have some liquid IV for electrolytes in the Fridge. I encouraged him to ice his back to try to stay active but not to do any heavy lifting. And of course, return to the ER for worsening symptoms. Medical Records Attestation: I reviewed the patient's medical records. Lab Data Attestation: I reviewed the patient's lab results. Labs: Lab Results 02/08/25 Range/Units 08:13 Urine Color Yellow (Yellow) Urine Appearance Clear (Clear) Urine pH 5.5 (5.0-8.5) Ur Specific [place] >= 1.030 (1.000-1.030) Urine Protein 1+ A (Negative) Urine Glucose (UA) Negative (Negative) Urine Ketones 2+ A (Negative) Urine Blood Trace-intact A (Negative) Urine Nitrite Negative (Negative) Urine Bilirubin 1+ A (Negative) Urine Urobilinogen 0.2 (0.2-1.0) Ur Leukocyte Esterase Negative (Negative) Urine RBC 0-2 (0-2) Urine WBC 0-2 (0-5) Ur Squamous Epith Cells Few (None-Few) Amorphous Sediment Moderate A (None) Urine Bacteria None (None) Discharge Plan Discharge Clinical Impression: Low back pain Patient Disposition: Home, Self-Care Condition: Improved Additional Instructions: Alternate Tylenol 1000 mg and ibuprofen 600 mg every 4 hours. Suggest ice to the lower back. Try not to be in bed or in active for long periods of time. -on the other hand do not do anything strenuous today. Flexeril as a muscle relaxer that you may use if you are experiencing spasm. This is a sedating medication and you should not take it with anything else that would make you sleepy, with alcohol or if you would be driving. Physical therapy referral made for you. Return to the ER for loss of bowel or bladder control, weak legs, worsening pain, unusual fever and as needed. Prescriptions: No Action fluoxetine 40 mg capsule 40 mg PO QAM ketorolac 10 mg tablet 10 mg PO TID 5 Days Qty: 15 0RF Follow Up/Referrals: Provider,Not a Local [Non-Staff] - Stand Alone Forms: [employer] Info Instructions
--- OUTSIDE RECORDS SUMMARY | 2025-02-08 08:20 | XMS_ITS | Clinical Summary ---
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 Gender Identity Not on file Sexual Orientation [...] Treatment Not on file Insurance 56[address] [place] [address] [place] [address] [place] Advance Directives For more information, please contact: [phone] * Full Code (Latest Code Status on File) Date Activated Date Inactivated Comments 03/08/2019 2:28 AM 03/13/2019 2:56 PM Question Answer Comments Code status determined by: Discussion with christie nt/legal decision maker Care Teams Counter Waitress/Waiter Relationship Specialty Start Date End Date Kavon Roach MD [facility] [address] [place] [address] PCP - General Pediatrics 02/22/19
--- OUTSIDE RECORDS SUMMARY | 2025-02-08 08:20 | XMS_ITS | Clinical Summary ---
Author Organization [employer] [facility] Address [facility] [place] [address] Care Team Providers Care Instructor Traffic Safety Name Role Phone Dorota Umaña Primary Care [...] of right knee joint 2022 Depression 03/08/2019 [place]-Schlatter's disease of left knee 06/28/20 15 Anxiety [...] on file Legal Sex Male 5:19 AM INVENTORY CONTROLLER Gender Identity Not on file Sexual Orientation Not on file Obstetrics History Last Filed Vital Signs Vital Sign Reading Time Taken Comments Blood Pressure 155/87 2024 4:17 PM INVENTORY CONTROLLER Pulse 98 2024 4:17 PM INVENTORY CONTROLLER Temperature 36.3 C (97.4 F) 2024 4:17 PM INVENTORY CONTROLLER Respiratory Rate 16 11/27/2023 7:55 AM INVENTORY CONTROLLER Oxygen Saturation 97% 2024 4:17 PM INVENTORY CONTROLLER Inhaled Oxygen Concentration - - Weight 84.7 kg (186 lb 12.8 oz) 12/03/2023 2:23 PM INVENTORY CONTROLLER Height 172.7 cm (5' 8) 12/03/2023 2:23 PM INVENTORY CONTROLLER Body Mass Index 28.4 12/03/2023 2:23 PM INVENTORY CONTROLLER Plan of Treatment Health Maintenance Due Date [...] age 9-26 Completed 05/29/2020, 08/05 Insurance MEDICAID [facility] MEDICAID Advance Directives * Full Code (Latest Code Status on File) Date Activated Date Inactivated Comments 11/23/2023 11:31 AM 11/27/2023 12:55 PM Question Answer Comments Code Status Discussion: Reviewed Preferences * Full Code Date Activated Date Inactivated Comments 04/14/2023 10:30 AM 04/17/2023 1:05 PM Question Answer Comments Code Status Discussion: Reviewed Preferences Care Teams Instructor Traffic Safety Relationship Specialty Start Date End Date Dorota Umaña PA [address] [place] [address] PCP - General Physician Desilverizer 04/26/24
--- OUTSIDE RECORDS SUMMARY | 2025-02-08 08:20 | XMS_ITS | Encounter Summary ---
Author Organization [facility] Address [facility] 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 B: Pt was BIB his mother to the ED for evaluation of SI. Pt was seen at the [facility] ED on 02/22/19for similar presentation. Pt has [...] use is suspected. A: Voluntary. R: call center team leader paged at 2320 to review for placement on 7A/Sharma/[facility]. call center team leader approved admission at 2322. Unit notified at 2325. ED notified at 2326. documented in this encounter Plan of Treatment Not on file documented as of this encounter Visit Diagnoses Not on filedocumented in this encounter Care Teams Printing Plate Clerk Relationship Specialty Start Date End Date Kavon Roach MD [address] [address] PCP - General Pediatrics 02/22/19 documented as of this encounter
[2025-02-08] MEDS: KETOROLAC 30 MG/ML inj IM (08:21)
[2025-02-08 08:25] LABS: Appearance Urine Clear (Clear); Bilirubin Urine 1+ (Negative); Blood Urine Trace-intact (Negative); Color Urine Yellow (Yellow); Glucose Urine Negative (Negative); Ketones Urine 2+ (Negative); Leukocyte Esterase Urine Negative (Negative); Nitrite Urine Negative (Negative); Protein Urine 1+ (Negative); Specific Gravity Urine >= 1.030 (1.000-1.030); Urobilinogen Urine 0.2 (0.2-1.0); pH Urine 5.5 (5.0-8.5)
[2025-02-08 08:38] LABS: Amorphous Sediment Urine Moderate; RBC Urine 0-2 (0-2); Squamous Epithelial Cell Urine Few (None-Few); WBC Urine 0-2 (0-5)
== END 2025-02-08 09:05 | disposition home or self-care (01) ==
PROVIDERS: Emergency Provider Family Medicine; PCP Physician Assistant Medical
DX: M54.50 Low back pain, unspecified (principal)
CPT/HCPCS: 81001; 96372; 99283; 99284; J1885

== ENCOUNTER 2025-03-08 09:42 | Outpatient (CLI) | payer BC, MEDICAID, SELFPAY | END 2025-03-08 09:43 | disposition home or self-care (01) | LOC: INJ CL 09:42 | PROVIDERS: PCP Physician Assistant Medical; Visit Provider Family Medicine | DX: M51.26 Other intervertebral disc displacement, lumbar region (principal); M54.16 Radiculopathy, lumbar region | CPT/HCPCS: 62323; J0702; Q9966 ==

== ENCOUNTER 2025-04-20 03:06 | Emergency (ER) | payer BC, MEDICAID, SELFPAY ==
--- OUTSIDE RECORDS SUMMARY | 2025-04-20 03:08 | XMS_ITS | Clinical Summary ---
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 Gender Identity Not on file Sexual Orientation [...] Treatment Not on file Insurance [address] [address] [place] [address] [place] Advance Directives For more information, please contact: [phone] * Full Code (Latest Code Status on File) Date Activated Date Inactivated Comments 03/08/2019 2:28 AM 03/13/2019 2:56 PM Question Answer Comments Code status determined by: Discussion with christie nt/legal decision maker Care Teams Rate Clerk Passenger Relationship Specialty Start Date End Date Kavon Roach MD [facility] [address] [place] [address] PCP - General Pediatrics 02/22/19
--- OUTSIDE RECORDS SUMMARY | 2025-04-20 03:08 | XMS_ITS | Clinical Summary ---
Author Organization [employer] [facility] Address [facility] [place] [address] Care Team Providers Care Post Production Assistant Name Role Phone Dorota Umaña Primary Care Provider Allergies No known active allergies Medications hydrOXYzine pamoate (VISTARIL) 25 mg capsuleIndication s:MAGALY (generalized anxiety disorder) TAKE 1-2 CAPSULES (25-50 MG) BY MOUTH 2 TIMES DAILY IF NEEDED FOR ANXIETY (SLEEP). 90 Capsule 5 Active cyclobenzaprine 10 mg tablet 10 mg. 3 times a day for muscle spasms 5 Active FLUoxetine 40 mg capsuleIndication s:MAGALY (generalized anxiety disorder) Take 1 Capsule (40 mg) by mouth once daily in the morning. 90 Capsule 3 5 Active meloxicam 15 mg tabletIndications :Acute midline low back pain without sciatica,Lumbar disc herniation Take 1 Tablet (15 mg) by mouth once daily. 30 Tablet 1 5 Active nabumetone (RELAFEN) 750 mg tabletIndications :Lumbar disc herniation,Lumbar radiculopathy Take 1 Tablet (750 mg) by mouth two times daily with meals. 60 Tablet 2 5 Active gabapentin (NEURONTIN) 300 mg capsuleIndication s:Lumbar radiculopathy Take 1 Capsule (300 mg) by mouth at bedtime. 30 Capsule 3 5 Active nabumetone 500 mg tabletIndications :Chronic midline low back pain without sciatica,Sacroili ac dysfunction Take 1 Tablet (500 mg) by mouth two times daily with meals. 60 Tablet 1 03/22/20 25 Discontin ued(*Med complete/ Regimen complete/ Level of care change) Active Problems Problem Noted Date Diagnosed Date Chronic pancreatitis, unspecified pancreatitis t ype 02/15/2025 Alcohol consumption of more than four drinks per week 07/07/2024 Alcohol-induced acute pancreatitis 04/14/2023 Recurrent instability of right knee joint 2022 Depression 03/08/2019 [place]-Schlatter's disease of left knee 06/28/20 15 Anxiety 12/28/2010 Hypertrophy of tonsils alone 08/28/2007 Epistaxis 08/28/2007 Allergic rhinitis, cause unspecified 08/28/2007 Acute suppurative otitis med ia without spontaneous rupture of eardrum 03/05/2007 Overview (03/05/2007): recurrent hx Encounters Date Type Department Care Team Description 04/13/2025 4:00 PM CDT Office Visit [facility] [address] [place] [address] Adria Guzman MD Musculoskeletal Problem (Follow up back pain, JEREMY on 03/08/25) 04/13/2025 Travel 03/22/2025 12:10 PM CDT Office Visit [facility] [address] [place] [address] Dorota Umaña PA follow up (injection/) 03/22/2025 Travel 03/08/2025 10:20 AM CDT Office Visit [facility] [address] [place] [address] Adria Guzman MD Procedure (L5-S1 ILESI) 03/06/2025 Travel 02/22/2025 10:30 AM CDT Office Visit [facility] [address] [place] [address] Dorota Umaña PA Follow Up (Go over MRI results - Feeling a little better, ) 02/22/2025 Travel 02/18/2025 3:30 PM CDT Ancillary Procedure [facility] [address] [facility] [place] [address] 02/18/2025 Travel 02/15/2025 10:10 AM CDT Office Visit [facility] [address] [place] [address] Dorota Umaña PA Follow Up (Back pain, still having pain, not sure he is ready to return to work or not); Medication Management 02/15/2025 Travel 02/14/2025 Telephone [facility] [address] [place] [address] Dorota Umaña PA Questions 02/10/2025 7:50 AM CDT Office Visit [facility] [address] [place] [address] Molina Duffy DO Back Pain (Post ER discharge 02/08 /No injury led to injury patient woke up at 3 am friday hardly able to walk/) 02/10/2025 Travel from Last 3 Months Immunizations Immunization Administration Dates Next Due AMB [...] or isolated from those around you? 0 02/10/2025 Financial Resource Strain Answer Date R ecorded Difficulty of Paying Living Expenses 3 02/10/2025 Difficulty of Paying Living Expenses Not on file 02/10/2025 Food Insecurity Answer Date Recorded Do you worry your food will run out before you are able to buy more? 1 02/10/2025 Transportation Needs Answer Date Record ed Does lack of transportation keep you from medica l appointments? 1 02/10/2025 Does lack of transportation keep you from work, meetings or getting things that you need? 1 02/10/2025 Housing Stability Answer Date Recorded What is your housing situation today? 1 02/10/2025 Interpersonal Safety Answer Date Record ed Are you being hit, kicked, p ushed or yelled at (see row info)? No 11/23/2023 Interpersonal Safety Abuse 12 - 18 Not on file 11/23/2023 Interpersonal Safety Ambulatory Vulnerability No t on file 11/23/2023 Utilities Answer Date Recorded Do you have trouble paying f or utilities (for example, heat, electricity, water, phone)? 1 02/10/2025 Sex and Gender Information Value Date Recorded Sex Assigned at Not on file Legal Sex Male 5:19 AM [employer] Gender Identity Not on file Sexual Orientation Not on file Obstetrics History Last Filed Vital Signs Vital Sign Reading Time Taken Comments Blood Pressure 131/87 04/13/2025 4:05 PM CDT Pulse 77 04/13/2025 4:05 PM CDT Temperature 36.9 C (98.5 F) 04/13/2025 4:05 PM CDT Respiratory Rate 16 11/27/2023 7:55 AM [employer] Oxygen Saturation 97% 04/13/2025 4:0 5 PM CDT Inhaled Oxygen Concentration - - Weight 93.8 kg (206 lb 14.4 oz) 025 4:05 PM CDT sandals on Height 176.3 cm (5' 9.41) 02/10/2025 8 :01 AM CDT Body Mass Index 30.19 02/10/2025 8:01 AM CDT Plan of Treatment Upcoming Encounters Date Type Department Care Team (Late st Contact Info) Description 05/25/2025 3:40 PM CDT Office Visit [facility] [address] [place] [address] Adria Guzman MD [address] [place] [address] Health Maintenance Due Date Last Done Comments HIV for age 15-65 2017 Hepatitis C screening for age 18-79 2020 COVID-19 vaccine series ( - 2023- season) 2024 Tetanus booster 04/06/2025 04/06/2015 Influenza Vaccine (#1) 2025 7, 07/21/2009, 08/06/2004 Depression screening for age 12+ 07/07/2025 07/07/2024, 12/03/2023 BMI (ht and wt on same day) for age 18+ 02/10/2026 02/10/2025, 12/03/2023, 02/12/2022, Additional history exists Pneumococcal series for age 6-49 Aged Out 11/02/2003, 05/06/2003, 02/25/2003, Additional history exists No longer eligible based on patient's age to complete this topic Hepatitis B series for 19+ Completed 01/30, 02/25/2003, 2002 HPV series for age 9-26 Completed 05/29/2020, 08/05 Procedures Procedure Name Priority Date/Time Associated Diagnosis Comments AMB EPIDURAL STEROID INJECTION Routine 03/08/2025 12:00 AM CDT Acute midline low back pain without sciatica Lumbar disc herniation MR SPINE LUMBAR WO AMANDA 02/18/2025 3: 48 PM CDT Chronic midline low back pain without sciatica Sacroiliac dysfunction from Last 3 Months Results * AMB EPIDURAL STEROID INJECTION (03/08/2025 12:00 AM CDT) Dorota FISCHER NEUROLOGY ORD Final R esult * MR SPINE LUMBAR WO (02/18/2025 3:48 PM CDT) Anatomical Region Laterality Modality Spine, LUMBAR SPINE Magnetic Res onance 02/18/2025 4:00 PM CDT Narrative 02/18/2025 4:00 PM CDT For Patients: As a result of the Cures Act, medical imaging exams and procedure reports are released immediately into your electronic medical record. You may view this report before your referring provider. If you have questions, please contact your health care provider. Indication: Chronic midline low back pain without sciatica. Sacroiliac dysfunction. Technique: Multiplanar, multisequence, MRI of the lumbar spine, obtained without contrast. Comparison: Lumbar spine x-ray 2024 Findings: The lumbar lordosis is preserved. No significant spondylolisthesis. Mild chronic anterior wedge configuration of T12-L2. No acute osseous abnormality. Unremarkable bone marrow signal. The conus medullaris terminates at approximately L2. No suspicious findings in the prevertebral and paraspinal soft tissues. Included SI joints are unremarkable. T12-L1 through L4-L5: No neural foraminal or spinal canal stenosis. L5-S1: Right posterior disc bulge, contributing to mild-moderate right neural foraminal narrowing. No left neural foraminal or spinal canal stenosis. Impression: 1. At L5-S1, shallow right posterior disc bulge contributes to mild-moderate right neural foraminal narrowing. 2. No significant neural foraminal or spinal canal narrowing at the remaining levels. 3. Unremarkable appearance of the included SI joints. Dictated by Leticia Campuzano MD @ 02/18/2025 4:00:12 PM (Electronically Signed) Procedure Note Leticia Campuzano DO - 02/18/2025 For Patients: As a result of the Century Cures Act, medical imagingexams and procedure reports are released immediately into your electronicmedical record. You may view this report before your referring provider.If you have questions, please contact your health care provider. Indication: Chronic midline low back pain without sciatica. Sacroiliac dysfunction. Technique: Multiplanar, multisequence, MRI of the lumbar spine, obtained withoutcontrast. Comparison: Lumbar spine x-ray 2024 Findings: The lumbar lordosis is preserved. No significant spondylolisthesis. Mildchronic anterior wedge configuration of T12-L2. No acute osseousabnormality. Unremarkable bone marrow signal. The conus medullaristerminates at approximately L2. No suspicious findings in the prevertebraland paraspinal soft tissues. Included SI joints are unremarkable. T12-L1 through L4-L5: No neural foraminal or spinal canal stenosis. L5-S1: Right posterior disc bulge, contributing to mild-moderate rightneural foraminal narrowing. No left neural foraminal or spinal canalstenosis. Impression: 1. At L5-S1, shallow right posterior disc bulge contributes tomild-moderate right neural foraminal narrowing. 2. No significant neural foraminal or spinal canal narrowing at theremaining levels. 3. Unremarkable appearance of the included SI joints. Dictated by Leticia Campuzano MD @ 02/18/2025 4:00:12 PM (Electronically Signed) Dorota FISCHER MR Final R esult from Last 3 [place] [address] [facility] [place] [address] Advance Directives * Full Code (Latest Code Status on File) Date Activated Date Inactivated Comments 11/23/2023 11:31 AM 11/27/2023 12:55 PM Question Answer Comments Code Status Discussion: Reviewed Preferences * Full Code Date Activated Date Inactivated Comments 04/14/2023 10:30 AM 04/17/2023 1:05 PM Question Answer Comments Code Status Discussion: Reviewed Preferences Care Teams Post Production Assistant Relationship Specialty Start Date End Date Dorota Umaña PA [address] [place] [address] PCP - General Physician [employer] Designer 04/26/24
--- NOTE | 2025-04-20 03:09 | ED.BACK ---
HPI - Back Pain/Injury General Time Seen by Provider: 03:09 Date Seen: 04/20/25 Chief Complaint: Back Injury/Pain Stated Complaint: Back pain Time Seen by Provider: 04/20/25 03:09 Source: patient, RN notes reviewed and old records reviewed Mode of arrival: ambulatory Limitations: no limitations History of Present Illness HPI Narrative: 24-year-old male who comes in today with back pain. Patient has a history of back pain, says his back started ?spasming? and he is having increased pain. No bowel or bladder discomfort. Says the pain is all up and down the back, all over the back. Applied heat, also took Tylenol. On further interview, patient says he took 1 dose of anti-inflammatory prescribed by primary care last week, review of chart shows this is Relafen which is be taken twice a day. Patient was prescribed gabapentin as well but is not taking this. 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, left leg (ICD-10) 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) Sialoadenitis ?K11.20 - Sialoadenitis, unspecified (ICD-10) Nocturnal enuresis (08/09/13) ?N39.44 - Nocturnal enuresis (ICD-10) Insomnia (08/13/12) ?G47.00 - Insomnia, unspecified (ICD-10) Ganglion cyst (03/26/13) ?M67.40 - Ganglion, unspecified site (ICD-10) Contusion of left lower extremity ?S80.12XA - Contusion of left lower leg, initial encounter (ICD-10) Concussion ?S06.0X9A - Concussion with loss of consciousness of unspecified duration, initial encounter (ICD-10) Surgical History History of orthopedic surgery ?Z98.890 - Other specified postprocedural states (ICD-10) History of tonsillectomy (08/13/12) ?Z90.89 - Acquired absence of other organs (ICD-10) H/O nasal septoplasty (08/09/13) ?Z98.890 - Other specified postprocedural states (ICD-10) Family History Mother Breast cancer Social History Narrative: Single. No children. Formally exercise. Alcohol, weekends. No illicit drug use. Non-smoker. Smoking Status: Never smoker Do you use any of these nicotine containing products: None Second hand tobacco smoke exposure: No How often do you have a drink containing alcohol: 2-4 times a month How many standard drinks containing alcohol do you have on a typical day: 3 or 4 AUDIT-C Alcohol total score: 3 Non-prescribed substance use: denies use Caffeine: Yes service: No Exam Narrative: Exam Narrative: General: Well-developed and well-nourished, no acute distress Head: Atraumatic and normocephalic Eyes: Pupils are equal reactive, extraocular motions intact, conjunctiva clear ENT: External nose and ears are normal, posterior pharynx without erythema or exudate Neck: No midline cervical tenderness, full spontaneous range of motion the neck, trachea midline, no adenopathy Heart: Regular rate and rhythm no murmurs or thrills Lungs: Clear to auscultation bilaterally without wheezes or crackles Abdomen: Soft, nontender, nondistended with active bowel sounds Musculoskeletal: Patient lying on his right side, twice on the bed without too much of his difficulty, diffuse low lumbar tenderness no midline tenderness Neurologic: Awake, alert, and oriented x3, no gross focal neurologic deficits, cranial nerves intact as tested Psych: Mood and affect are appropriate Skin: No rashes Const: Vital Signs, click to edit/add: Vital Signs - 24 hr 04/20/25 03:12 04/20/25 03:55 Temperature 96.7 F L Pulse Rate [Pulse Oximeter] 68 65 Respiratory Rate 16 16 Blood Pressure [Ri ght Upper Arm] 153/110 H 147/106 H Pulse Oximetry 98 98 Oxygen Delivery Me thod Room Air Room Air Course Course ED Course: Reviewed prior emergency department visit from February 08 which was for low back pain, at that time this was described as bilateral pain, worse with movement, similar to pain that he had in November for which she was to start physical therapy but did not. Also reviewed sports medicine visit from April 13 when patient was seen for back pain, patient was given gabapentin 300 mg in the bedtime and nabumentone 750mg BID. Care today complicated by cigarette use and alcohol use. Patient presents today with back pain which he describes as diffuse. No red flag symptoms including bowel or bladder incontinence, numbness or tingling or weakness of legs. Patient is having ongoing back pain for several months. He took Tylenol for this and initially said nothing else but on further questioning did takeone1 dose of Relafen as prescribed by his primary care doctor last week, not taking gabapentin that was prescribed last week. Patient will be given Toradol in the emergency department and should take his other medications as previously prescribed. Reevaluation(s) Time of Reevaluation #1: 04:41 Reevaluation #1: Patient recheck. He received Percocet as pain is not much improved after Toradol and Flexeril. We discussed instructions for taking his own medications, patient's movement better proved oral Ativan will be ordered and plan for discharge with prescription for Flexeril. Vital Signs Vital signs: Initial Vital Signs Temperature 96.7 F L 04/20/25 03:12 Temperature Source Temporal Artery Scan 04/20/25 03:12 Pulse Rate 68 04/20/25 03:12 Respiratory Rate 16 04/20/25 03:12 Blood Pressure 153/110 H 04/20/25 03:12 Blood Pressure Mean 124 H 04/20/25 03:12 Blood Pressure Position Left Lateral 04/20/25 03:12 Pulse Oximetry 98 04/20/25 03:12 Oxygen Delivery Method Room Air 04/20/25 03:12 Vital Signs Temperature 96.7 F L 04/20/25 03:12 Pulse Rate 68 04/20/25 03:12 Respiratory Rate 16 04/20/25 03:12 Blood Pressure 153/110 H 04/20/25 03:12 Pulse Oximetry 98 04/20/25 03:12 Oxygen Delivery Method Room Air 04/20/25 03:12 Temperature 96.7 F L 04/20/25 03:12 Pulse Rate 65 04/20/25 03:55 Respiratory Rate 16 04/20/25 03:55 Blood Pressure 147/106 H 04/20/25 03:55 Pulse Oximetry 98 04/20/25 03:55 Oxygen Delivery Method Room Air 04/20/25 03:55 Medications Administered Medications: Generic Name Dose Route Start Last Admin Trade Name Mirella PRN Reason Stop Dose Admin Cyclobenzaprine HCl 10 mg 04/20/25 03:24 04/20/25 03:28 Cyclobenzaprine Hcl 10 Mg Tablet PO 04/20/25 03:25 10 mg ONCE ONE Administration Ketorolac Tromethamine 30 mg 04/20/25 03:24 04/20/25 03:28 Ketorolac 30 Mg/Ml Inj IM 04/20/25 03:25 30 mg ONCE ONE Administration Oxycodone/Acetaminophen 1 tab 04/20/25 04:01 04/20/25 04:13 Oxycodone/Apap 5-325 Tablet PO 04/20/25 04:02 1 tab ONCE ONE Administration Discharge Plan Discharge Clinical Impression: Lumbar back pain, Muscle spasm Patient Disposition: Home w/ Parent or Adult Condition: Stable Instructions: Acute Low Back Pain (ED), Muscle Spasm (ED) Additional Instructions: Take Relafen twice a day as prescribed Take gabapentin every night as prescribed. After 2 days if you are still having pain, start taking this twice a day. Activity Level: Activity as Tolerated Discharge Diet: Regular Prescriptions: No Action fluoxetine 40 mg capsule 40 mg PO QAM ketorolac 10 mg tablet 10 mg PO TID 5 Days Qty: 15 0RF Follow Up/Referrals: Dorota Umaña PA-C [Primary Care Provider, Family Practice] Stand Alone Forms: MyHealth Info Instructions
[2025-04-20 03:12] VITALS: BP 153/110; PULSE 68; RESP 16; TEMP 35.9; O2SAT 98; BMI 28.1
[2025-04-20] MEDS: CYCLOBENZAPRINE HCL 10 MG TABLET PO (03:28)
[2025-04-20 03:55] VITALS: BP 147/106; PULSE 65; RESP 16; O2SAT 98
[2025-04-20] MEDS: OxyCODONE/APAP 5-325 TABLET 1 TAB PO (04:13)
== END 2025-04-20 04:48 | disposition home or self-care (01) ==
LOC: ED 03:36
PROVIDERS: Emergency Provider Family Medicine; PCP Physician Assistant Medical
DX: M54.50 Low back pain, unspecified (principal); M62.830 Muscle spasm of back
CPT/HCPCS: 96372; 99284; A9270; J1885